=== PATIENT | male | born 1950 | race Two or more races ===

== ENCOUNTER 2023-10-14 12:37 | Emergency (ER) | payer MEDICARE ==
[~2023-10-14] VITALS: Ht 167.6 cm; Wt 42.3 kg
[2023-10-14 12:49] VITALS: BP 133/57; RESP 18; O2SAT 97
[2023-10-14 12:54] VITALS: PULSE 94
== END 2023-10-14 20:20 | disposition left against medical advice (07) ==
LOC: ER 12:37
DX: R42 Dizziness and giddiness (principal); R51.9 Headache, unspecified; M54.50 Low back pain, unspecified; M54.2 Cervicalgia; Z53.21 Procedure and treatment not carried out due to patient leaving prior to being seen by health care provider; W18.39XA Other fall on same level, initial encounter; Y93.89 Activity, other specified; Y92.89 Other specified places as the place of occurrence of the external cause; Y99.8 Other external cause status
CPT/HCPCS: 93005

== ENCOUNTER 2024-01-15 07:44 | Day surgery (SDC) | payer MEDICARE, MEDICAID ==
[~2024-01-15] VITALS: Ht 167.6 cm; Wt 40.8 kg
[2024-01-15] VITALS (13 sets, daily range): BP systolic 104–126; BP diastolic 52–69; PULSE 60–91; RESP 14–21; O2SAT 93–98
[~2024-01-15 07:44] MED LIST: ASPI-543 PO; CARV3.1240 PO; DOCU-94 PO; EMPA1TAB PO; HYDR2TAB58 PO; METO25TA5 PO; ROSU10TA16 PO; SACU1TAB PO
[2024-01-15] MEDS ORDERED: LIDOCAINE 2%HCL (LOCAL ANESTH.) INJ 20ML MDV ONE (09:13)
[2024-01-15] MEDS ORDERED: IODIXANOL 320MG/ML 100ML BTL IV ONE (09:13)
[2024-01-15] MEDS ORDERED: ANGIOMAX 250 MG VIAL IV ONE (09:16)
[2024-01-15] MEDS ORDERED: MIDAZOLAM HCL 2MG/2ML 2ml VIAL (1mg/ml) ONE (09:16)
[2024-01-15] MEDS ORDERED: fentaNYL CITRATE 100 MCG/2 ML VL ONE (09:16)
[2024-01-15] MEDS ORDERED: SODIUM CHL 0.9% 0 ML ONE (09:16)
== END 2024-01-15 14:42 | disposition home or self-care (01) ==
LOC: CATH 07:44
PROVIDERS: ATTEND Internal Medicine Cardiovascular Disease
DX: I25.5 Ischemic cardiomyopathy (principal); R94.39 Abnormal result of other cardiovascular function study; I25.10 Atherosclerotic heart disease of native coronary artery without angina pectoris; I11.0 Hypertensive heart disease with heart failure; I50.20 Unspecified systolic (congestive) heart failure; I44.7 Left bundle-branch block, unspecified; J44.9 Chronic obstructive pulmonary disease, unspecified; E78.5 Hyperlipidemia, unspecified; Z95.5 Presence of coronary angioplasty implant and graft
CPT/HCPCS: 93458; C1894; J1644; J2250; J3010; J7030; Q9967; 99152

== ENCOUNTER 2025-02-11 01:49 | Inpatient (IN) | payer MEDICARE, MEDICAID ==
[~2025-02-11] VITALS: Ht 167.6 cm; Wt 56.7 kg
[2025-02-11] VITALS (9 sets, daily range): BP systolic 99–146; BP diastolic 59–88; PULSE 78–97; RESP 14–20; TEMP 97.6–98.2; O2SAT 92–98
[2025-02-11] MEDS: SODIUM CHLORIDE 0.9% 1,000 ML IV ONE (02:00)
--- NOTE | 2025-02-11 02:04 | ED.PDOC ---
History of Present Illness HPI Comments 75 year old male with a Hx of HTN, High Lipids, and a Defibrillator presents to the ED for the c/c of Generalized Weakness w/ associated SOB, CP, diffuse ABD pain, and Dark Stool. Pt states that he symptoms have been onset for the past couple of weeks, with no alleviating factors at this time. No other associated symptoms, modifiers, recent injuries or sick contacts present at this time. Chief Complaint: General Weakness Time Seen by MD: 02:00 Primary Care Provider: TREY PMKaci Reviewed Notes: Nurses Notes, Medications, Allergies Allergies: Coded Allergies: NO KNOWN ALLERGIES (Unverified , 10/14/23) Home Meds Reported Medications Hydromorphone Hcl (Dilaudid) 2 Mg Tab, 2 TAB PO QID for back and hip pain. 01/13/24 Docusate Sodium (Colace) 100 Mg Cap, 100 MG PO DAILY for constipation, CAP 01/13/24 Aspirin (Aspir-Low) 81 Mg Tab, 81 MG PO DAILY for cardiac 01/13/24 Metoprolol Tartrate (Metoprolol Tartrate) 25 Mg Tab, 25 MG PO PRN for htn 01/13/24 Sacubitril-Valsartan (Entresto 24-26 mg) 1 Tab Tab, 1 TAB PO PRN for htn, TAB 01/13/24 Empagliflozin (Jardiance) 10 Mg Tab, 10 MG PO BID for cardiac, TAB 01/13/24 Carvedilol (Carvedilol) 3.125 Mg Tab, 3.125 MG PO DAILY for cardiac 01/13/24 Rosuvastatin Calcium (Crestor) 10 Mg Tab, 10 MG PO HS for cholesterol, TAB 01/13/24 Information Source: Patient Mode of Arrival: Wheelchair Severity: Moderate Timing: Weeks Duration: Intermittent Prehospital treatment: None Past Medical History PAST MEDICAL HISTORY: High Lipids, HTN Surgical History: Tonsillectomy Family History Family History: Reviewed,noncontributory to illness Social History Smoker: Quit Greater Than 1 Year Alcohol: Denies ETOH Use Drugs: Marijuana Lives In: Home, Assisted Care Constitutional: reports: weakness; denies: chills, diaphoresis, fatigue, fever, malaise, sweats, others EENTM: denies: blurred vision, double vision, ear bleeding, ear discharge, ear drainage, ear pain, ear ringing, eye pain, eye redness, hearing loss, mouth pain, mouth swelling, nasal discharge, nose bleeding, nose congestion, nose pain, photophobia, tearing, throat pain, throat swelling, voice changes, others Respiratory: reports: SOB at rest, shortness of breath; denies: cough, hemoptysis, orthopnea, SOB with excertion, stridor, wheezing, others Cardiovascular: reports: chest pain; denies: dizzy spells, diaphoresis, Dyspnea on exertion, edema, irregular heart beat, left arm pain, lightheadedness, palpitations, PND, syncope, others Gastrointestinal: reports: abdominal pain; denies: abdomen distended, blood streaked bowels, constipated, diarrhea, dysphagia, difficulty swallowing, hematemesis, melena, nausea, poor appetite, poor fluid intake, rectal bleeding, rectal pain, vomiting, others Genitourinary: denies: burning, dysuria, flank pain, frequency, hematuria, incontinence, penile discharge, penile sore, pain, testicle pain, testicle swelling, urgency, others Neurological: denies: dizziness, fainting, headache, left sided numbness, left sided weakness, numbness, paresthesia, pre-existing deficit, right sided numbness, right sided weakness, seizure, speech problems, tingling, tremors, weakness, others Musculoskeletal: denies: back pain, gout, joint pain, joint swelling, muscle pain, muscle stiffness, neck pain, others Integumetry: denies: bruises, change in color, change in hair/nails, dryness, laceration, lesions, lumps, rash, wounds, others Allergic/Immunocompromised: denies: Difficulty Healing, Frequent Infections, Hives, Itching, others Hematologic/Lymphatic: denies: anemia, blood clots, easy bleeding, easy bruising, swollen glands, others Endocrine: denies: excessive hunger, excessive sweating, excessive thirst, excessive urination, flushing, intolerance to cold, intolerance to heat, unexplained weight gain, unexplained weight loss, others Psychiatric: denies: anxiety, bipolar disorder, depression, hopeless, panic disorder, schizophrenia, sleepless, suicidal, others All Other Systems: Reviewed and Negative Physical Exam General Appearance: Moderate Distress, Normal, Thin, Other (Chronic ill appearing ) HEENT: Normal ENT Inspection, Pharynx Normal, TMs Normal Neck: Full Range of Motion, Non-Tender, Normal, Normal Inspection Respiratory: Chest Non-Tender, Lungs Clear, No Accessory Muscle Use, No Respiratory Distress, Normal Breath Sounds Cardiovascular: No Edema, No JVD, No Murmur, No Gallop, Normal Peripheral Pulses, Regular Rate/Rhythm Breast Exam: Deferred Gastrointestinal: No Organomegaly, Non Tender, No Pulsatile Mass, Normal Bowel Sounds, Soft Genitalia: Deferred Pelvic: Deferred Rectal: Deferred Extremities: No calf tenderness, Normal capillary refill, Normal inspection, Normal range of motion, Non-tender, No pedal edema Musculoskeletal : Apperance: Normal Neurologic: Alert, No Motor Deficits, Normal Affect, Normal Mood, No Sensory Deficits Cerebellar Function: Normal Reflexes: Normal Skin: Jaundice Lymphatic: No Adenopathy Was a procedure done? Was a procedure done?: No Differential Dx Considerations may include: Differential diagnosis includes but is not limited to: coronary ischemia, dehydration, sepsis, electrolyte abnormality, symptomatic anemia, hypovolemia and others X-Ray, Labs, Meds, VS Vital Signs Date Time Temp Pulse Resp B/P (MAP) Pulse Ox O2 Delivery O2 Flow Rate FiO2 02/11/25 05:03 84 163/97 (119) 02/11/25 02:49 98.1 86 20 138/80 (99) 95 98.1 02/11/25 02:49 83 20 95 Room Air* 0 21 02/11/25 01:52 97.5 95 12 134/78 (96) 98 97.5 Lab Test 02/11/25 04:30 02/11/25 03:17 02/11/25 02:26 Range/Units Lactic Acid Level 1.9 2.2 *H 0.4-2.0 mmol/L Troponin I High Sensitivity 4 6 </=54 ng/L White Blood Count 4.3 L 4.4-10.8 10^3/uL Red Blood Count 4.19 L 4.5-5.90 10^6/uL Hemoglobin 10.4 L 13.5-17.5 g/dL Hematocrit 33.5 L 41.0-53.0 % Mean Corpuscular Volume 80.0 80.0-100.0 fL Mean Corpuscular Hemoglobin 24.8 L 28.0-32.0 pg Mean Corpuscular Hemoglobin Concent 31.0 L 32.0-36.0 g/dL Red Cell Distribution Width 22.5 H 11.8-14.3 % Platelet Count 225 140-450 10^3/uL Mean Platelet Volume 7.6 6.9-10.8 fL Neutrophils (%) (Auto) 51.2 37.0-80.0 % Lymphocytes (%) (Auto) 34.7 10.0-50.0 % Monocytes (%) (Auto) 11.1 0.0-12.0 % Eosinophils (%) (Auto) 2.2 0.0-7.0 % Basophils (%) (Auto) 0.8 0.0-2.0 % Neutrophils # (Auto) 2.2 1.6-8.6 10 ^3/uL Lymphocytes # (Auto) 1.5 0.4-5.4 10 ^3/uL Monocytes # (Auto) 0.5 0-1.3 10 ^3/uL Eosinophils # (Auto) 0.1 0-0.8 10 ^3/uL Basophils # (Auto) 0 0-0.2 10 ^3/uL Nucleated Red Blood Cells 0.1 % Prothrombin Time 14.0 H 9.3-11.8 sec Prothrombin Time INR 1.36 H 0.9-1.15 Activated Partial Thromboplast Time 31.7 24.5-34.5 SEC Sodium Level 142 136-145 mmol/L Potassium Level 3.7 3.5-5.1 mmol/L Chloride Level 104 98-107 mmol/L Carbon Dioxide Level 28 20-31 mmol/L Anion Gap 10 5-15 Blood Urea Nitrogen 9 9-23 mg/dL Creatinine 0.86 0.700-1.30 mg/dL Glomerular Filtration Rate Calc 90 >90 mL/min BUN/Creatinine Ratio 10.5 10.0-20.0 Serum Glucose 99 74-106 mg/dL Calcium Level 9.9 8.7-10.4 mg/dL Magnesium Level 2.0 1.6-2.6 mg/dL Total Bilirubin 0.9 0.2-1.0 mg/dL Aspartate Amino Transferase (AST) 65 H 13-40 U/L Alanine Aminotransferase (ALT) 12 7-40 U/L Alkaline Phosphatase 61 46-116 U/L B-Type Natriuretic Peptide 395.65 0-100 pg/mL Total Protein 7.2 5.7-8.2 g/dL Albumin 3.8 3.2-4.8 g/dL Current Medications Medications (Trade) Dose Ordered Sig/Hayley Route Start Time Stop Time Status Last Admin Sodium Chloride 1,000 ml @ 1,000 mls/hr Q1H ONCE IV 02/11/25 02:00 02/11/25 02:59 DC 02/11/25 02:00 PATIENT: KASIA KO ACCT: [id number] UNIT: [id number] : 1950 LOC: ER ROOM / BED: / AGE / SEX: 75 / M ADM STATUS: REG ER SERVICE 0203 ORDERING PHYSICIAN: NANCY GILMORE MD PROCEDURE(s): ABPLIV - CT AB PEL WITH IV CON ONLY REASON: abd pain ORDER NUMBER(s): [id number], ACCESSION NUMBER(s): [id number] Exam: CT CT AB PEL WITH IV CON ONLY History: abd pain COMPARISON: CT CT AB PEL WITH IV CON ONLY on DOS: 01/12/25 Technique: Multidetector spiral CT of the abdomen and pelvis was performed from lung bases to pubic symphysis. Intravenous contrast was administered during this examination. Portal venous imaging was obtained. Axial, coronal and sagittal multiplanar reformats were performed by the technologist on a separate workstation. Radiation Dose : 1. Abdomen/Pelvis: CTDIvol 7.56 mGy, DLP 497.56 mGy*cm. CONTRAST: Type of contrast: Omnipaque 300 Contrast injected: 100 ml Findings: Lung Bases: Stable appearing slightly nodular bibasilar pulmonary infiltrate redemonstrated. New small bilateral pleural effusions, [id number]-right, with adjacent atelectasis. Normal heart size. No pleural or pericardial effusion. Cardiac pacing leads. Liver: Multiple stable appearing hepatic masses, the largest of which measures up to 8.0 cm in diameter within the left lobe. Gallbladder and Biliary Tree: Unremarkable Spleen: Unremarkable Pancreas: The pancreas is normal in appearance without focal lesions or abnormal enhancement. Adrenal Glands: Unremarkable Kidneys: No hydronephrosis. Bladder: Unremarkable Bowel: The stomach is grossly normal in appearance. Small bowel and colon are normal in caliber and distribution. Diverticulosis coli without CT evidence of acute diverticulitis. The appendix is not visualized; however, no secondary findings of acute appendicitis identified. Ascites: Slight interval increase in moderate to large abdominopelvic ascites. Lymphadenopathy: No mesenteric, retroperitoneal or periportal lymphadenopathy. Abdominal Wall and Mesentery: Unremarkable. Vasculature: The visualized abdominal aorta is normal in size and caliber. Atherosclerotic vascular calcifications. Abdominal and pelvic vessels demonstrate normal enhancement. Pelvic Organs: Unremarkable Musculoskeletal: No aggressive focal bony lesions, acute fractures or dislocation. Hardware status post L3-L5 posterior lumbar interbody fusion without evidence of complication. IMPRESSION: 1. New small bilateral pleural effusions, [id number]-mcdy-left, with adjacent atelectasis. Otherwise stable appearing nodular multifocal bibasilar pulmonary infiltrate. 2. Multiple stable appearing hepatic masses concerning for primary and/or metastatic disease. 3. Interval increase in now moderate to large abdominopelvic ascites. 4. Diverticulosis coli without CT evidence of acute diverticulitis. PATIENT: KASIA KO ACCT: [id number] UNIT: [id number] : 1950 LOC: ER ROOM / BED: / AGE / SEX: 75 / M ADM STATUS: REG ER SERVICE 0200 ORDERING PHYSICIAN: NACNY GILMORE MD PROCEDURE(s): CXRP - CHEST PORTABLE REASON: SOB ORDER NUMBER(s): [id number], ACCESSION NUMBER(s): [id number] CHEST RADIOGRAPH Indication: SOB Technique: Single frontal view of the chest was obtained COMPARISON: XY CHEST PORTABLE on DOS: 01/11/25 FINDINGS: Lines and Tubes: None. Left anterior chest wall cardiac pacing device. Lungs: Chronic appearing bilateral interstitial pulmonary markings. Small left pleural effusion. No pneumothorax. Cardiomediastinal contours: Unremarkable Bones: Unremarkable IMPRESSION: 1. Small left pleural effusion. 2. Chronic appearing bilateral interstitial pulmonary markings. Time of 1ST Reevaluation: 02:30 Reevaluation 1ST: Unchanged Patient Education/Counseling: Diagnosis, Treatment, Need For Follow Up Family Education/Counseling: No Family Present SEPSIS Sepsis Screen Physician Orders Chest Portable (02/11/25 02:00) Urinalysis (02/11/25 02:00) Heplock Iv (02/11/25 02:00) Hydraulic Controls Technician (02/11/25 02:00) Troponin-I Hs (02/11/25 05:00) Blood Culture (02/11/25 02:00) Ct Ab Pel With Iv Con Only (02/11/25 02:03) Vital Signs Date Time Temp Pulse Resp B/P (MAP) Pulse Ox O2 Delivery O2 Flow Rate FiO2 02/11/25 05:03 84 163/97 (119) 02/11/25 02:49 98.1 86 20 138/80 (99) 95 98.1 02/11/25 02:49 83 20 95 Room Air* 0 21 02/11/25 01:52 97.5 95 12 134/78 (96) 98 97.5 Laboratory Tests Test 02/11/25 02:26 02/11/25 04:30 Lactic Acid Level 2.2 mmol/L (0.4-2.0) *H 1.9 mmol/L (0.4-2.0) White Blood Count 4.3 10^3/uL (4.4-10.8) L Medications Medications Dose Ordered Sig/Hayley Route Start Time Stop Time Status Last Admin Dose Admin Sodium Chloride 1,000 ml @ 1,000 mls/hr Q1H ONCE IV 02/11/25 02:00 02/11/25 02:59 DC 02/11/25 02:00 Departure 1 Departure Time of Disposition: 05:16 Impression: Primary Impression: Generalized weakness Additional Impressions: 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 The patient appears ill and cachectic on examination. Diagnostic workup revealed metastatic cancer with primary hepatic malignancy and metastases to the lungs, bilateral pleural effusions, and possible bilateral pulmonary infiltrates. Review of Systems: Constitutional: Positive for generalized weakness and malaise. Respiratory: Positive for shortness of breath and dyspnea on exertion. Cardiovascular: Positive for chest pain. All other systems: Unable to assess from provided information. Medications: Home medications not specified in infection prevention coordinator. ED medications: IV fluids, IV Rocephin (ceftriaxone), azithromycin. Allergies: No known allergies documented in infection prevention coordinator. Past Medical History: Hypertension Hypercholesterolemia Anemia History of cardiac condition requiring defibrillator placement Physical Exam: General: Elderly male appearing ill and cachectic. Other physical exam findings not documented in infection prevention coordinator. Lab Results: CBC: - Hemoglobin: 10.4 g/dL (Low) - Hematocrit: 33.5% (Low) - WBC: 4.3 K/uL (Slightly low) Chemistry: - Lactic acid: 2.2 mmol/L (Elevated) - Troponin: 6 ng/L (Normal) - Remainder of chemistry panel unremarkable Imaging and Other Relevant Results: Chest X-ray: Bilateral pleural effusions CT Chest/Abdomen/Pelvis: Hepatic cancer with metastases to the lungs, pleural effusion, and possible bilateral infiltrates Medical Decision Making: Summary Statement: 75-year-old male with history of hypertension, hypercholesterolemia, and anemia presenting with 5-day history of weakness, shortness of breath, and chest pain found to have metastatic cancer with pneumonitis. Problem List: 1. Metastatic cancer (hepatic primary with lung metastases), 2. Pneumonitis/possible pneumonia, 3. Bilateral pleural effusions, 4. Anemia, 5. Hypertension, 6. Hypercholesterolemia Differential Diagnosis: For respiratory symptoms: 1. Pneumonia, 2. Malignant pleural effusion, 3. Pulmonary embolism, 4. Lymphangitic carcinomatosis, 5. Cardiac etiology (CHF, acute coronary syndrome) ED Course: Patient received IV fluid resuscitation. Empiric antibiotic therapy initiated with IV ceftriaxone and azithromycin for possible pneumonia. Diagnostic workup included CBC, chemistry panel, troponin, lactic acid, chest X- ray, and CT of chest/abdomen/pelvis, which revealed metastatic cancer. Decision made to admit patient for further management. Assessment and Plan: 1. Metastatic Cancer (Hepatic primary with lung metastases): - Newly diagnosed on CT imaging - Will require admission for further workup and staging - Oncology consultation to be obtained during admission - Consider tissue biopsy for definitive diagnosis and treatment planning 2. Pneumonitis/Possible Pneumonia: - Bilateral infiltrates noted on CT scan - Initiated empiric antibiotic coverage with IV ceftriaxone and azithromycin - Continue antibiotics during admission - Monitor respiratory status closely 3. Bilateral Pleural Effusions: - Likely malignant in etiology - Consider thoracentesis for diagnostic and therapeutic purposes during admission 4. Anemia: - Chronic, possibly related to malignancy - Hemoglobin 10.4, Hematocrit 33.5 - Monitor for clinical symptoms of anemia - Consider transfusion if symptomatic 5. Disposition: - Admit to Medicine service - Consult Oncology and Pulmonology - Continue IV antibiotics - Supportive care and symptom management Additional Notes: Patient requires admission for pneumonitis and metastatic cancer Billing Information: ICD-10: C78.00 - Secondary malignant neoplasm of lung ICD-10: C78.7 - Secondary malignant neoplasm of liver ICD-10: J18.9 - Pneumonia, unspecified organism ICD-10: R06.02 - Shortness of breath ICD-10: R53.1 - Weakness ICD-10: J91.8 - Pleural effusion in other conditions classified elsewhere Critical Care Note Critical Care Time?: Yes (35 min-critical care time only) Critical care comment: Total critical care time: Approximately 36 minutes Due to a high probability of clinically significant, life threatening deterioration, the patient required my highest level of preparedness to intervene emergently and I personally spent this critical care time directly and personally managing the patient. This critical care time included obtaining a history; examining the patient; pulse oximetry; ordering and review of studies; arranging urgent treatment with development of a management plan; evaluation of patient's response to treatment; frequent reassessment; and, discussions with other providers. This critical care time was performed to assess and manage the high probability of imminent, life-threatening deterioration that could result in multi-organ failure. It was exclusive of separately billable procedures and treating other patients. Stability Stability form required: No Heart Score Heart Score: Heart Score Response (Comments) Value History Slightly Suspicious 0 EKG Repolarization Disturb 1 Age >65 2 Risk Factors 1 or 2 risk factors 1 Troponin Normal limit 0 Total 4 I personally scribed for NANCY GILMORE MD ([email or web address]) on 02/11/25 at 02:04. Electronically submitted by Damian Lao ([email or web address]). I personally scribed for NANCY GILMORE MD (GUERITA) on 02/11/25 at 02:11. Electronically submitted by Damian Lao ([email or web address]). I personally scribed for NANCY GILMORE MD (GUERITA) on 02/11/25 at 05:12. Eunice ctronically submitted by Damian Lao ([email or web address]). NANCY GILMORE MD Feb 11, 2025 02:04
[2025-02-11 03:03] LABS: Hematocrit 33.5 % (41.0-53.0); Hemoglobin 10.4 g/dL (13.5-17.5); Mean Corpuscular Hemoglobin 24.8 pg (28.0-32.0); Mean Corpuscular Volume 80.0 fL (80.0-100.0); Nucleated Red Blood Cells % 0.1 %
[2025-02-11 03:18] LABS: INR 1.36 (0.9-1.15); Partial Thromboplastin Time 31.7 SEC (24.5-34.5); Prothrombin Time 14.0 sec (9.3-11.8)
[2025-02-11 03:23] LABS: Alanine Aminotransferase 12 U/L (7-40); Albumin 3.8 g/dL (3.2-4.8); Alkaline Phosphatase 61 U/L (46-116); Anion Gap 10 (5-15); BUN/Creatinine Ratio 10.5 (10.0-20.0); Bilirubin, Total 0.9 mg/dL (0.2-1.0); Blood Urea Nitrogen 9 mg/dL (9-23); Calcium 9.9 mg/dL (8.7-10.4); Carbon Dioxide 28 mmol/L (20-31); Chloride 104 mmol/L (98-107); Glucose 99 mg/dL (74-106); Magnesium 2.0 mg/dL (1.6-2.6); Potassium 3.7 mmol/L (3.5-5.1); Sodium 142 mmol/L (136-145); Total Protein 7.2 g/dL (5.7-8.2)
[2025-02-11 03:27] LABS: Lactic Acid w/Reflex 2.2 mmol/L (0.4-2.0)
[2025-02-11] MEDS: IOHEXOL 300 MG/ML 100ML BOTTLE IJ ONE (04:01)
--- NOTE | 2025-02-11 04:54 | DVH ---
Exam: CT CT AB PEL WITH IV CON ONLY History: abd pain COMPARISON: CT CT AB PEL WITH IV CON ONLY on DOS: 01/12/25 Technique: Multidetector spiral CT of the abdomen and pelvis was performed from lung bases to pubic s ymphysis. Intravenous contrast was administered during this examination. Portal venous imaging was o btained. Axial, coronal and sagittal multiplanar reformats were performed by the technologist on a [employer] workstation. Radiation Dose : 1. Abdomen/Pelvis: CTDIvol 7.56 mGy, DLP 497.56 mGy*cm. CONTRAST: Type of contrast: Omnipaque 300 Contrast injected: 100 ml Findings: Lung Bases: Stable appearing slightly nodular bibasilar pulmonary infiltrate redemonstrated. New smal l bilateral pleural effusions, [id number]-right, with adjacent atelectasis. Normal heart size . No pleural or pericardial effusion. Cardiac pacing leads. Liver: Multiple stable appearing hepatic masses, the largest of which measures up to 8.0 cm in diamet er within the left lobe. Gallbladder and Biliary Tree: Unremarkable Spleen: Unremarkable Pancreas: The pancreas is normal in appearance without focal lesions or abnormal enhancement. Adrenal Glands: Unremarkable Kidneys: No hydronephrosis. Bladder: Unremarkable Bowel: The stomach is grossly normal in appearance. Small bowel and colon are normal in caliber and d istribution. Diverticulosis coli without CT evidence of acute diverticulitis. The appendix is not vis ualized; however, no secondary findings of acute appendicitis identified. Ascites: Slight interval increase in moderate to large abdominopelvic ascites. Lymphadenopathy: No mesenteric, retroperitoneal or periportal lymphadenopathy. Abdominal Wall and Mesentery: Unremarkable. Vasculature: The visualized abdominal aorta is normal in size and caliber. Atherosclerotic vascular c alcifications. Abdominal and pelvic vessels demonstrate normal enhancement. Pelvic Organs: Unremarkable Musculoskeletal: No aggressive focal bony lesions, acute fractures or dislocation. Hardware status po st L3-L5 posterior lumbar interbody fusion without evidence of complication. IMPRESSION: 1. New small bilateral pleural effusions, oacoo-eelidqk-falv-left, with adjacent atelectasis. Otherwi se stable appearing nodular multifocal bibasilar pulmonary infiltrate. 2. Multiple stable appearing hepatic masses concerning for primary and/or metastatic disease. 3. Interval increase in now moderate to large abdominopelvic ascites. 4. Diverticulosis coli without CT evidence of acute diverticulitis. Radiation optimization: All CT scans at this facility use at least one of these dose optimization bong hniques: automated exposure control mA and/or kV adjustment per patient size (includes targeted exam s where dose is matched to clinical indication) or iterative reconstruction.
--- NOTE | 2025-02-11 04:56 | DVH ---
CHEST RADIOGRAPH Indication: SOB Technique: Single frontal view of the chest was obtained COMPARISON: XY CHEST PORTABLE on DOS: 01/11/25 FINDINGS: Lines and Tubes: None. Left anterior chest wall cardiac pacing device. Lungs: Chronic appearing bilateral interstitial pulmonary markings. Small left pleural effusion. No pneumothorax. Cardiomediastinal contours: Unremarkable Bones: Unremarkable IMPRESSION: 1. Small left pleural effusion. 2. Chronic appearing bilateral interstitial pulmonary markings.
[2025-02-11] MEDS: hydrALAZINE HCL 20 MG/ML VL IV STA (05:26)
[2025-02-11] MEDS: cefTRIAXone 1GM/50ML D5W 50 ML IV ONE (05:31)
[2025-02-11] MEDS: AZITHROMYCIN 500MG/ 250ML 250 ML IV ONE (05:42)
[2025-02-11] MEDS ORDERED: DOCUSATE SOD 100 MG CAP PO PRN (06:00)
[2025-02-11] MEDS ORDERED: ACETAMINOPHEN 325 MG TAB PO PRN (06:00)
[2025-02-11] MEDS ORDERED: MORPHINE SULFATE INJ 2 MG/ml SYRG IV PRN (06:00)
[2025-02-11] MEDS ORDERED: ONDANSETRON HCL 4 MG/2 ML VIAL IV PRN (06:00)
[2025-02-11] MEDS ORDERED: NITROGLYCERIN 0.4 MG SL TAB SL PRN (06:00)
[2025-02-11] MEDS: SODIUM CHLOR 0.9% PF (SALINE LOCK) 10ML VIAL/SYR IV SCH (06:23)
[2025-02-11] MEDS: FUROSEMIDE 20 MG/2 ML VIAL IV ONE (06:23)
--- NOTE | 2025-02-11 06:27 | DVHHP2 ---
History of Present Illness Reason for Visit: Generalized weakness History of Present Illness The patient is a 75-year-old male with past medical history of hyperlipidemia and hypertension who presented to [facility] ED for evaluation of generalized weakness. Patient's symptoms progressively get worse with diffuse abdominal pain, dark stools, associated with shortness of breaths, getting worse that prompted this visit. Patient was seen and evaluated in the ED, laboratory data shows WBC 4.3, hemoglobin 10.4, hematocrit 33.5, platelets 225, sodium 142, potassium 3.7, BUN 9, creatinine 0.86, glucose 99, calcium 9.9, BNP 395.65, AST 65, ALT 12, troponin four, lactic acid 2.2 trending down to 1.9, blood pressure 142/78, heart rate 88, temperature 98.1 F, O2 saturation 99% on room air. Abdomen/pelvis CT revealing new small bilateral pleural effusion, right greater than left, with adjacent atelectasis, stable appearing nodular multifocal bibasilar pulmonary infiltrates; multiple stable appearing hepatic masses concerning for primary and/or metastatic disease, moderate to large abdominopelvic ascites; diverticulitis without evidence of acute cholecystitis. Patient was started on IV antibiotic regimen azithromycin, please see medication orders section in the computer. On my assessment, patient denied chest pain, no headache, no dizziness, no shortness of breath, no abdominal pain at this moment, no nausea, no vomiting, no fever, no chills. Patient was admitted for further evaluation and medical management. Past Medical History High Lipids, HTN Past Surgical History Tonsillectomy Family History Reviewed, noncontributory to the management of this case. Past Social History [facility], quit greater than 1 year, denies alcohol, uses marijuana. Review of Systems Constitutional: Yes: Weakness; No: Fever, Chills, Sweats, Malaise, Other Eyes: No: Pain, Vision change, Conjunctivae inflammation, Eyelid inflammation, Other, Redness ENT: No: Ear pain, Ear discharge, Nose pain, Nose discharge, Nose congestion, Mouth pain, Mouth swelling, Throat pain, Throat swelling, Other Respiratory: Shortness of breath, Other (SOB at rest); No: Cough, Dry, SOB with excertion, Wheezing, Hemoptysis, Pleuritic Pain, Sputum, Wheezing Cardiovascular: Chest Pain; No: Palpitations, Orthopnea, Paroxysmal Noc. Dyspnea, Edema, Lt Headedness, Other Gastrointestinal: Abdominal Pain; No: Nausea, Vomiting, Diarrhea, Constipation, Melena, Hematochezia, Other Genitourinary: No Dysuria, No Frequency, No Incontinence, No Hematuria, No Retention, No Other Musculoskeletal: No: other, neck pain, shoulder pain, arm pain, back pain, hand pain, leg pain, foot pain Skin: No: Rash, Lesions, Jaundice, Bruising, Other Neurological: No: Weakness, Numbness, Incoordination, Change in speech, Confusion, Seizures, Other Allergies: Coded Allergies: NO KNOWN ALLERGIES (Unverified , 10/14/23) Exam Vital Signs Vital Signs Date Time Temp Pulse Resp B/P (MAP) Pulse Ox O2 Delivery O2 Flow Rate FiO2 02/11/25 05:42 98.1 88 20 142/78 (99) 99 98.1 02/11/25 02:49 Room Air* 0 21 General Appearance: Alert, Oriented X3, Cooperative, No acute distress HEENT: Atraumatic, PERRLA, EOMI, Mucous membr. moist/pink Respiratory: Normal air movement Cardiovascular: Regular rate, Normal S1, Normal S2, No murmurs Abdominal: Normal bowel sounds, Soft, No tenderness, No hepatospenomegaly, No masses Extremities: No clubbing, No cyanosis, No edema, Normal pulses, No tenderness/swelling Skin: No rashes, No breakdown, No significant lesion Neuro: Normal speech, Normal tone, Sensation intact, Cranial nerves 3-12 NL, Reflexes 2+, Other (Generalized weakness) Psych/Mental Status: Mental status NL, Mood NL Labs/Xrays Labs Test 02/11/25 05:36 02/11/25 04:30 02/11/25 02:26 Range/Units Lactic Acid Level 1.9 0.4-2.0 mmol/L White Blood Count 4.3 L 4.4-10.8 10^3/uL Red Blood Count 4.19 L 4.5-5.90 10^6/uL Hemoglobin 10.4 L 13.5-17.5 g/dL Hematocrit 33.5 L 41.0-53.0 % Mean Corpuscular Volume 80.0 80.0-100.0 fL Mean Corpuscular Hemoglobin 24.8 L 28.0-32.0 pg Mean Corpuscular Hemoglobin Concent 31.0 L 32.0-36.0 g/dL Red Cell Distribution Width 22.5 H 11.8-14.3 % Platelet Count 225 140-450 10^3/uL Mean Platelet Volume 7.6 6.9-10.8 fL Neutrophils (%) (Auto) 51.2 37.0-80.0 % Lymphocytes (%) (Auto) 34.7 10.0-50.0 % Monocytes (%) (Auto) 11.1 0.0-12.0 % Eosinophils (%) (Auto) 2.2 0.0-7.0 % Basophils (%) (Auto) 0.8 0.0-2.0 % Neutrophils # (Auto) 2.2 1.6-8.6 10 ^3/uL Lymphocytes # (Auto) 1.5 0.4-5.4 10 ^3/uL Monocytes # (Auto) 0.5 0-1.3 10 ^3/uL Eosinophils # (Auto) 0.1 0-0.8 10 ^3/uL Basophils # (Auto) 0 0-0.2 10 ^3/uL Nucleated Red Blood Cells 0.1 % Prothrombin Time 14.0 H 9.3-11.8 sec Prothrombin Time INR 1.36 H 0.9-1.15 Activated Partial Thromboplast Time 31.7 24.5-34.5 SEC Sodium Level 142 136-145 mmol/L Potassium Level 3.7 3.5-5.1 mmol/L Chloride Level 104 98-107 mmol/L Carbon Dioxide Level 28 20-31 mmol/L Anion Gap 10 5-15 Blood Urea Nitrogen 9 9-23 mg/dL Creatinine 0.86 0.700-1.30 mg/dL Glomerular Filtration Rate Calc 90 >90 mL/min BUN/Creatinine Ratio 10.5 10.0-20.0 Serum Glucose 99 74-106 mg/dL Calcium Level 9.9 8.7-10.4 mg/dL Magnesium Level 2.0 1.6-2.6 mg/dL Total Bilirubin 0.9 0.2-1.0 mg/dL Aspartate Amino Transferase (AST) 65 H 13-40 U/L Alanine Aminotransferase (ALT) 12 7-40 U/L Alkaline Phosphatase 61 46-116 U/L B-Type Natriuretic Peptide 395.65 0-100 pg/mL Total Protein 7.2 5.7-8.2 g/dL Albumin 3.8 3.2-4.8 g/dL PATIENT: ASHVIN KOCCT: [id number] UNIT: [id number] : 1950 LOC: ER ROOM / BED: / AGE / SEX: 75 / M ADM STATUS: REG ER SERVICE 0203 ORDERING PHYSICIAN: NANCY GILMORE MD PROCEDURE(s): ABPLIV - CT AB PEL WITH IV CON ONLY REASON: abd pain ORDER NUMBER(s): [id number], ACCESSION NUMBER(s): [id number] Exam: CT CT AB PEL WITH IV CON ONLY History: abd pain COMPARISON: CT CT AB PEL WITH IV CON ONLY on DOS: 01/12/25 Technique: Multidetector spiral CT of the abdomen and pelvis was performed from lung bases to pubic symphysis. Intravenous contrast was administered during this examination. Portal venous imaging was obtained. Axial, coronal and sagittal multiplanar reformats were performed by the technologist on a separate workstation. Radiation Dose: 1. Abdomen/Pelvis: CTDIvol 7.56 mGy, DLP 497.56 mGy*cm. CONTRAST: Type of contrast: Omnipaque 300 Contrast injected: 100 ml Findings: Lung Bases: Stable appearing slightly nodular bibasilar pulmonary infiltrate redemonstrated. New small bilateral pleural effusions, [id number]-[id number]-right, with adjacent atelectasis. Normal heart size. No pleural or pericardial effusion . Cardiac pacing leads. Liver: Multiple stable appearing hepatic masses, the largest of which measures up to 8.0 cm in diameter within the left lobe. Gallbladder and Biliary Tree: Unremarkable Spleen: Unremarkable Pancreas: The pancreas is normal in appearance without focal lesions or abnormal enhancement. Adrenal Glands: Unremarkable Kidneys: No hydronephrosis. Bladder: Unremarkable Bowel: The stomach is grossly normal in appearance. Small bowel and colon are normal in caliber and distribution. Diverticulosis coli without CT evidence of acute diverticulitis. The appendix is not visualized; however, no secondary findings of acute appendicitis identified. Ascites: Slight interval increase in moderate to large abdominopelvic ascites. Lymphadenopathy: No mesenteric, retroperitoneal or periportal lymphadenopathy. Abdominal Wall and Mesentery: Unremarkable. Vasculature: The visualized abdominal aorta is normal in size and caliber. Atherosclerotic vascular calcifications. Abdominal and pelvic vessels demonst rate normal enhancement. Pelvic Organs: Unremarkable Musculoskeletal: No aggressive focal bony lesions, acute fractures or dislo cation. Hardware status post L3-L5 posterior lumbar interbody fusion without evidence of complication. IMPRESSION: 1. New small bilateral pleural effusions, gaggz-jqtpluk-zpww-left, with adjacent atelectasis. Otherwise stable appearing nodular multifocal bibasilar pulmonary infiltrate. 2. Multiple stable appearing hepatic masses concerning for primary and/or metastatic disease. 3. Interval increase in now moderate to large abdominopelvic ascites. 4. Diverticulosis coli without CT evidence of acute diverticulitis. ORDERING PHYSICIAN: NANCY GILMORE MD PROCEDURE(s): CXRP - CHEST PORTABLE REASON: SOB ORDER NUMBER(s): [id number], ACCESSION NUMBER(s): [id number] CHEST RADIOGRAPH Indication: SOB Technique: Single frontal view of the chest was obtained COMPARISON: XY CHEST PORTABLE on DOS: 01/11/25 FINDINGS: Lines and Tubes: None. Left anterior chest wall cardiac pacing device. Lungs: Chronic appearing bilateral interstitial pulmonary markings. Small left pleural effusion. No pneumothorax. Cardiomediastinal contours: Unremarkable Bones: Unremarkable IMPRESSION: 1. Small left pleural effusion. 2. Chronic appearing bilateral interstitial pulmonary markings. SEPSIS Sepsis Screen Date sepsis recognized/suspect: Feb 11, 2025 Time Sepsis recognized/suspect: 251 Recent Procedure: No On Antibiotic Therapy: No Respiratory Rate >20: No Heart Rate >90: No Temp<36 C (96.8 F) or >38.3 C: No SBP <90 or MAP <65 mmHG: No New Acute Mental Status Change: No Is the patient on CPAP, BIPAP,: No Physician Orders Chest Portable (02/11/25 02:00) Urinalysis (02/11/25 02:00) Heplock Iv (02/11/25 02:00) Farm Machinery Mechanic (02/11/25 02:00) Troponin-I Hs (02/11/25 05:00) Blood Culture (02/11/25 02:00) Ct Ab Pel With Iv Con Only (02/11/25 02:03) Azithromycin 500mg/ 250ml (Zithromax 50 (02/11/25 05:30) Complete Blood Count (02/11/25 05:52) Comprehensive Metabolic Panel (02/11/25 05:52) Aspirin Tablet (02/11/25 10:00) Atorvastatin (Lipitor) (02/11/25 22:00) Carvedilol Tablet (Coreg Tablet) (02/11/25 10:00) Clonidine Hcl Tablet (Catapres Tablet) (02/11/25 06:00) Amlodipine Tablet (Norvasc Tablet) (02/11/25 10:00) Azithromycin 500mg/ 250ml (Zithromax 50 (02/11/25 10:00) Ceftriaxone Ivpb Rocephin (02/11/25 09:00) Admit (02/11/25 05:52) Allergies (02/11/25 05:52) Code Status (02/11/25 05:52) Sodium Chloride Lock (Saline Lock Ns) (02/11/25 06:00) Oxygen Per Hour (02/11/25 05:52) Hydrocodone-Acet 5/325mg Tab ([place] 5/32 (02/11/25 06:00) Ondansetron Hcl (Zofran) (02/11/25 06:00) Docusate Sodium Capsule (Colace Capsule) (02/11/25 06:00) Complete Blood Count (02/12/25 04:00) Comprehensive Metabolic Panel (02/12/25 04:00) Cardiac Diet-2gna,Lofat,Lochol (02/11/25 Breakfast) Echo 2d Mode Cardiac Dop (02/11/25 05:52) Condition: Serious (02/11/25 05:52) Acetaminophen Tablet (Tylenol Tablet) (02/11/25 06:00) Bedrest With Bathroom Privileg (02/11/25 05:52) Sequential Compression Device (02/11/25 ) Nitroglycerin Sublingual (Ntrostat Subli (02/11/25 06:00) Morphine Sulfate Injection (02/11/25 06:00) Stat Ekg For Chest Pain (02/11/25 05:52) Notify Of Changes From Base (02/11/25 05:52) Duck Bill Operator For 24 Hours (02/11/25 05:52) Emergency Dysrhythmia Protocol (02/11/25 05:52) Rhythm Strips Once Every Shift (02/11/25 05:52) Oxygen By Nasal Cannula (02/11/25 05:52) Furosemide Injection (Lasix Injection) (02/11/25 06:00) Furosemide Injection (Lasix Injection) (02/11/25 10:00) Vital Signs Date Time Temp Pulse Resp B/P (MAP) Pulse Ox O2 Delivery O2 Flow Rate FiO2 02/11/25 05:42 98.1 88 20 142/78 (99) 99 98.1 02/11/25 05:26 173/92 02/11/25 05:03 84 163/97 (119) 02/11/25 02:49 98.1 86 20 138/80 (99) 95 98.1 02/11/25 02:49 83 20 95 Room Air* 0 21 02/11/25 01:52 97.5 95 12 134/78 (96) 98 97.5 Laboratory Tests Test 02/11/25 02:26 02/11/25 04:30 Lactic Acid Level 2.2 mmol/L (0.4-2.0) *H 1.9 mmol/L (0.4-2.0) White Blood Count 4.3 10^3/uL (4.4-10.8) L Medications Medications Dose Ordered Sig/Hayley Route Start Time Stop Time Status Last Admin Dose Admin Azithromycin 250 ml @ 125 mls/hr ONCE ONCE IV 02/11/25 05:30 02/11/25 07:29 02/11/25 05:42 125 MLS/HR Ceftriaxone Sodium 50 ml @ 100 mls/hr ONCE ONCE IV 02/11/25 05:30 02/11/25 05:59 DC 02/11/25 05:31 100 MLS/HR Hydralazine HCl 5 mg ONCE STAT IV 02/11/25 05:21 02/11/25 05:22 DC 02/11/25 05:26 5 MG Sodium Chloride 1,000 ml @ 1,000 mls/hr Q1H ONCE IV 02/11/25 02:00 02/11/25 02:59 DC 02/11/25 02:00 1,000 MLS/HR Assessment/Plan Assessment/Plan Generalized weakness Pneumonitis Abdominal ascites Liver disease Pleural effusion Anemia, unspecified Elevated brain natriuretic peptide (BNP) level 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 Admit to telemetry unit 2. Breathing treatment 3. Pain control management 4. IV antibiotic management 5. Management of fluids and electrolytes 6. Consultation for hospitalist/pulmonology 7. Diagnostic test abdomen/pelvis CT 8. DVT prophylaxis-on SCDs 9. Repeat labs CBC, CMP in a.m. 10. Home medication reviewed and reconciled 11. Continue with current medical management 12. Treatment plan discussed with patient and RN. Patient verbalized understanding. Plan discussed with: Patient, Other (RN) My Orders Orders - MIRLANDE HINDS DNP Procedure Category Date Status Time Complete Blood Count LAB 02/11/25 Transmitted 05:52 Comprehensive LAB 02/11/25 Transmitted Metabolic Panel 05:52 Aspirin Tablet PHA 02/11/25 Transmitted 10:00 Atorvastatin (Lipitor) PHA 02/11/25 Transmitted 22:00 Carvedilol Tablet PHA 02/11/25 Transmitted (Coreg Tablet) 10:00 Clonidine Hcl Tablet PHA 02/11/25 Transmitted (Catapres Tablet) 06:00 Amlodipine Tablet PHA 02/11/25 Transmitted (Norvasc Tablet) 10:00 Azithromycin 500mg/ PHA 02/11/25 Transmitted 250ml (Zithromax 50 10:00 Ceftriaxone Ivpb PHA 02/11/25 Transmitted Rocephin 09:00 Admit ADMIT 02/11/25 Transmitted 05:52 Allergies WILFREDO 02/11/25 Transmitted 05:52 Code Status CODE 02/11/25 Transmitted 05:52 Sodium Chloride Lock PHA 02/11/25 Transmitted (Saline Lock Ns) 06:00 Oxygen Per Hour RT 02/11/25 Transmitted 05:52 Hydrocodone-Acet PHA 02/11/25 Transmitted 5/325mg Tab ([place] 06:00 Ondansetron Hcl PHA 02/11/25 Transmitted (Zofran) 06:00 Docusate Sodium PHA 02/11/25 Transmitted Capsule (Colace 06:00 Complete Blood Count LAB 02/12/25 Verified 04:00 Comprehensive LAB 02/12/25 Verified Metabolic Panel 04:00 Cardiac DIET 02/11/25 Transmitted Diet-2gna,Lofat,Lochol Breakfast Echo 2d Mode Cardiac US 02/11/25 Transmitted DOP 05:52 Condition: Serious WILFREDO 02/11/25 Transmitted 05:52 Acetaminophen Tablet PHA 02/11/25 Transmitted (Tylenol Tablet) 06:00 Bedrest With Bathroom [facility]ILFREDO 02/11/25 Transmitted Privileg 05:52 Sequential [facility] 02/11/25 Transmitted Compression Device Nitroglycerin PHA 02/11/25 Transmitted Sublingual (Ntrostat 06:00 Morphine Sulfate [facility] 02/11/25 Transmitted Injection 06:[address] Chest [facility] 02/11/25 Transmitted Pain 05:[address] [facility] 02/11/25 Transmitted From Base 05:[address] [facility] 02/11/25 Transmitted 24 Hours 05:[address] [facility] 02/11/25 Transmitted Protocol 05:[address] 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
[2025-02-11 07:05] LABS: Urine Protein, UAD TRACE (Negative)
--- NOTE | 2025-02-11 07:47 | DVH ---
US ABDOMEN LIMITED HISTORY: FLUID CHECK COMPARISON: None TECHNIQUE: Transverse and longitudinal sonographic images were obtained of all four quadrants of the abdomen and pelvis. FINDINGS: IMPRESSION: There is moderate ascites.
[2025-02-11] MEDS: FUROSEMIDE 20 MG/2 ML VIAL IV SCH (10:36)
[2025-02-11] MEDS: CARVEDILOL 3.125 MG TAB PO SCH (10:37)
--- NOTE | 2025-02-11 12:41 | DVHNC2 ---
Procedure - Paracentesis Procedure Note INDICATION: Ascites PROCEDURE [employer] SAFETY PROGRAM COORDINATOR: Isauro Connors MD. Ultrasound used to roberta location: Y/N CONSENT: Consent was obtained from _ prior to the procedure. Indications, risks, and benefits were explained at length. PROCEDURE SUMMARY: A time-out was performed. My hands were washed immediately prior to the procedure. I wore a surgical cap, mask with protective eyewear, sterile gown and sterile gloves throughout the procedure. The area was cleansed and draped in usual sterile fashion using chlorhexidine scrub. Anesthesia was achieved with 1% lidocaine. The _ of the abdomen was prepped and draped in a sterile fashion using chlorhexidine scrub. 1% lidocaine was used to numb the skin, soft tissue and peritoneum. The paracentesis catheter was inserted and advanced with negative pressure until yellow colored fluid was aspirated. Approximately 60 mL of ascitic fluid was collected and sent for laboratory analysis. The catheter was then connected to the vaccutainer and 2100 mL of additional yellow ascitic fluid were drained. The catheter was removed and no leaking was noted. A band- aid was placed over the puncture wound. The patient tolerated the procedure well without any immediate complications. Estimated blood loss was less than 5 mL. CPT 40513 ISAURO CONNORS MD Feb 11, 2025 12:41
[2025-02-11] MEDS: HYDROcodone-ACET 5/325MG TAB PO PRN (14:44)
--- NOTE | 2025-02-11 19:10 | DVHPN2 ---
Subjective Feels better but still having back pain and he is requesting Dilaudid Reviewed: Care Plan, H&P, Labs, Medications, Previous Orders, Radiology Changes from previous H/P or p: No Changes Respiratory: Shortness of breath Objective Vitals Vital Signs Date Time Temp Pulse Resp B/P (MAP) Pulse Ox O2 Delivery O2 Flow Rate FiO2 02/11/25 16:23 97.6 90 18 125/75 (92) 92 97.6 02/11/25 09:40 Nasal Cannula* 2 28 General Appearance: Alert, Oriented X3, Cooperative HEENT: Atraumatic Lungs: Other (Crackles bilateral lungs) Cardiovascular: Regular rate Abdomen: Normal bowel sounds, Soft Extremities: Other (3+ bilateral lower extremity edema/pitting) Medications Current Medications Medications Dose Ordered Sig/Hayley Route Start Time Stop Time Status Last Admin Dose Admin Aspirin 81 mg DAILY PO 02/11/25 10:00 Atorvastatin Calcium 10 mg HS PO 02/11/25 22:00 Carvedilol 3.125 mg Q12HR PO 02/11/25 10:00 02/11/25 10:37 3.125 MG Clonidine HCl 0.1 mg Q4HP PRN PO 02/11/25 06:00 Amlodipine Besylate 5 mg DAILY PO 02/11/25 10:00 02/11/25 10:36 5 MG Azithromycin 250 ml @ 125 mls/hr DAILY IV 02/12/25 10:00 Ceftriaxone Sodium 50 ml @ 100 mls/hr DAILY@0530 IV 02/12/25 05:30 Sodium Chloride 10 ml Q8HR IV 02/11/25 06:00 02/11/25 14:00 10 ML Acetaminophen/ Hydrocodone Bitart 1 tab Q4HP PRN PO 02/11/25 06:00 02/11/25 14:44 1 TAB Ondansetron HCl 4 mg Q4HP PRN IV 02/11/25 06:00 Docusate Sodium 100 mg BIDPRN PRN PO 02/11/25 06:00 Acetaminophen 650 mg Q6HP PRN PO 02/11/25 06:00 Nitroglycerin 0.4 mg Q5MINP PRN SL 02/11/25 06:00 Morphine Sulfate 2 mg Q30M PRN IV 02/11/25 06:00 Furosemide 20 mg DAILY IV 02/11/25 10:00 02/11/25 10:36 20 MG Laboratory Results Laboratory Tests 02/11/25 02:26 Chemistry Test 02/11/25 02:26 Albumin 3.8 g/dL (3.2-4.8) Calcium Level 9.9 mg/dL (8.7-10.4) Magnesium Level 2.0 mg/dL (1.6-2.6) Total Protein 7.2 g/dL (5.7-8.2) Coagulation Test 02/11/25 02:26 Prothrombin Time 14.0 sec (9.3-11.8) H Prothrombin Time INR 1.36 (0.9-1.15) H Activated Partial Thromboplast Time 31.7 SEC (24.5-34.5) Cardiac Markers Test 02/11/25 02:26 B-Type Natriuretic Peptide 395.65 pg/mL (0-100) LFT Test 02/11/25 02:26 Alanine Aminotransferase (ALT) 12 U/L (7-40) Alkaline Phosphatase 61 U/L (46-116) Aspartate Amino Transferase (AST) 65 U/L (13-40) H Total Bilirubin 0.9 mg/dL (0.2-1.0) Urinalysis Test 02/11/25 06:00 Urine Color Yellow (Yellow) Urine Clarity Clear (Clear) Urine pH 6.0 (5.0-9.0) Urine Specific St[place] > 1.050 (1.001-1.035) Urine Protein Trace (Negative) H Urine Ketones Negative (Negative) Urine Blood Negative /uL (Negative) Urine Nitrite Negative (Negative) Urine Bilirubin Negative (Negative) Urine Urobilinogen Normal mg/dL (Negative) Urine Leukocyte Esterase Negative /uL (Negative) Urine RBC <1 /hpf (0 - 3) Urine Microscopic WBC 1 /HPF (0-3) Urine Squamous Epithelial Cells Few /hpf (<5) Urine Bacteria Few /hpf (None Seen) H Urine Mucus Few (None Seen) Urine Glucose Normal mg/dL (Normal) Assessment/Plan Assessment/Plan Liver lesions of unclear etiology/possible metastasis versus primary Bilateral pleural effusion Ascites Anasarca Anemia Diverticulosis Questionable pneumonitis Hypertension Dyslipidemia History of HI and heart failure Chronic pain syndrome/patient takes heavy narcotics are home Plan: We will obtain abdominal MRI attention to liver lesions/possible metastasis. Pain control. Further plan per orders Plan discussed with: Patient Date of Service: Feb 11, 2025 Billing Provider: TERENCE AVILES MD Common Visit Codes: [id number] INP/OBS CARE(HIGH) TERENCE AVILES MD Feb 11, 2025 19:10
[2025-02-11] MEDS: ATORVASTATIN 20 MG TAB PO SCH (21:45)
--- NOTE | 2025-02-11 23:25 | DVHINCON2 ---
Date of service: Feb 11, 2025 Referring Physician [employer] MEMBER [facility] Reason for Consultation Acute hypoxic respiratory failure, aspiration pneumonia, metastatic lung cancer, pleural effusions and ascites. History of Present Illness A 75-year-old man with past medical history of hyperlipidemia and hypertension who presents to ED today for evaluation of generalized weakness. Patient's symptoms progressively got worse with diffuse abdominal pain, dark stools, associated with shortness of breath, getting worse that prompted this visit. ED workup showed WBC 4.3, hemoglobin 10.4, hematocrit 33.5, platelets 225, sodium 142, potassium 3.7, BUN 9, creatinine 0.86, glucose 99, calcium 9.9, BNP 395.65, AST 65, ALT 12, troponin four, lactic acid 2.2 trending down to 1.9. Vitals in ED were BP 142/78, heart rate 88, temperature 98.1 F, O2 saturation 99% on room air. Abdomen/pelvis CT revealing new small bilateral pleural effusions, right greater than left, with adjacent atelectasis, stable appearing nodular multifocal bibasilar pulmonary infiltrates; multiple stable appearing hepatic masses concerning for primary and/or metastatic disease, moderate to large abdominopelvic ascites; diverticulitis without evidence of acute cholecystitis. Patient was started on IV antibiotic regimen azithromycin and admitted for further care. Pulmonary consultation is requested for evaluation and management of acute hypoxic respiratory failure, aspiration pneumonia, metastatic lung cancer, pleural effusions and ascites. Review of Systems: 14-point review of systems negative unless otherwise noted above. Past Medical History High Lipids, HTN Past Surgical History Tonsillectomy Medications: Reviewed. Allergies: No known drug allergies. Family History: Hypertension and heart disease. Social History Patient lives at assisted living. Quit smoking greater than 1 year ago. Denies alcohol. Uses marijuana. Family History: Cardiovascular disease G8 MOTHER G8 FATHER Hypertension G8 MOTHER G8 FATHER Allergies: Coded Allergies: NO KNOWN ALLERGIES (Unverified , 10/14/23) Home Meds Reported Medications Hydromorphone Hcl (Dilaudid) 2 Mg Tab, 2 TAB PO QID for back and hip pain. 01/13/24 Docusate Sodium (Colace) 100 Mg Cap, 100 MG PO DAILY for constipation, CAP 01/13/24 Aspirin (Aspir-Low) 81 Mg Tab, 81 MG PO DAILY for cardiac 01/13/24 Metoprolol Tartrate (Metoprolol Tartrate) 25 Mg Tab, 25 MG PO PRN for htn 01/13/24 Sacubitril-Valsartan (Entresto 24-26 mg) 1 Tab Tab, 1 TAB PO PRN for htn, TAB 01/13/24 Empagliflozin (Jardiance) 10 Mg Tab, 10 MG PO BID for cardiac, TAB 01/13/24 Carvedilol (Carvedilol) 3.125 Mg Tab, 3.125 MG PO DAILY for cardiac 01/13/24 Rosuvastatin Calcium (Crestor) 10 Mg Tab, 10 MG PO HS for cholesterol, TAB 01/13/24 Current Medications Current Medications Medications (Trade) Dose Ordered Sig/Hayley Route PRN Reason Start Time Stop Time Status Last Admin Hydralazine HCl (Apresoline Injection) 5 mg ONCE STAT IV 02/11/25 05:21 02/11/25 05:22 DC 02/11/25 05:26 Aspirin 81 mg DAILY PO 02/11/25 10:00 Atorvastatin Calcium (Lipitor) 10 mg HS PO 02/11/25 22:00 02/11/25 21:45 Carvedilol (Coreg Tablet) 3.125 mg Q12HR PO 02/11/25 10:00 02/11/25 21:45 Clonidine HCl (Catapres Tablet) 0.1 mg Q4HP PRN PO SBP>150 02/11/25 06:00 Amlodipine Besylate (Norvasc Tablet) 5 mg DAILY PO 02/11/25 10:00 02/11/25 10:36 Azithromycin 250 ml @ 125 mls/hr DAILY IV 02/12/25 10:00 Ceftriaxone Sodium 50 ml @ 100 mls/hr DAILY@0530 IV 02/12/25 05:30 Sodium Chloride (Saline Lock Ns) 10 ml Q8HR IV 02/11/25 06:00 02/11/25 21:44 Acetaminophen/ Hydrocodone Bitart ([place] 5/325MG Tab) 1 tab Q4HP PRN PO MODERATE PAIN (4-6 PAIN SCALE) 02/11/25 06:00 02/11/25 19:36 DC 02/11/25 14:44 Ondansetron HCl (Zofran) 4 mg Q4HP PRN IV NAUSEA / VOMITING 02/11/25 06:00 Docusate Sodium (Colace Capsule) 100 mg BIDPRN PRN PO FOR CONSTIPATION 02/11/25 06:00 Acetaminophen (Tylenol Tablet) 650 mg Q6HP PRN PO PAIN SCALE 1-3 OR TEMP>100.4 02/11/25 06:00 Nitroglycerin (Ntrostat Sublingual) 0.4 mg Q5MINP PRN SL FOR CHEST PAIN 02/11/25 06:00 Morphine Sulfate 2 mg Q30M PRN IV FOR CHEST PAIN 02/11/25 06:00 Furosemide (Lasix Injection) 20 mg DAILY IV 02/11/25 10:00 02/11/25 10:36 Acetaminophen/ Hydrocodone Bitart ([place] 10/325MG Tab) 1 tab Q4HP PRN PO MODERATE PAIN (4-6 PAIN SCALE) 02/11/25 19:15 Hydromorphone HCl (Dilaudid Tablet) 2 mg Q4HP PRN PO SEVERE PAIN (7-10 PAIN SCALE) 02/11/25 19:15 02/11/25 20:43 Vital Signs Vital Signs Date Time Temp Pulse Resp B/P (MAP) Pulse Ox O2 Delivery O2 Flow Rate FiO2 02/11/25 21:45 96 146/88 02/11/25 20:56 98.0 18 94 98.0 02/11/25 09:40 Nasal Cannula* 2 28 Physical Exam Gen.: Patient lying in bed in no apparent distress. On supplemental oxygen. Head: Normocephalic, atraumatic. Eyes: EOMI/PERRLA. Ears: Normal hearing. Normal anatomy. Neck/trachea: Trachea midline, supple. Nose: Normal external anatomy. Mouth: Moist mucous membranes. Chest: Decreased air entry bilaterally. No wheezing or rhonchi. Cardiovascular: Positive S1, positive S2. Regular rate and rhythm. Abdomen: Positive bowel sounds in all 4 quadrants. Soft, non-tender, non- distended. : Deferred. Rectal: Deferred. Skin: Warm, dry. Intact. Extremities: 2+ radial pulses bilaterally. No lower extremity edema. Neuro: Awake, alert, oriented x3. No gross motor or sensory deficits. Cranial nerves II through XII intact. Gait not assessed. Labs/Diagnostic Data Labs Test 02/11/25 13:00 02/11/25 06:00 02/11/25 05:36 02/11/25 04:30 Range/Units Body Fluid Source Peritoneal fluid Body Fluid pH 8.0 Body Fluid WBC (Manual) 19 0-200 CUMM Body Fluid RBC (Manual) 632 0-2000 CUMM Body Fluid Mononuclear Cells 93 % Body Fluid Polymorphonuclear Cells 7 0-25 % Urine Color Yellow Yellow Urine Clarity Clear Clear Urine pH 6.0 5.0-9.0 Urine Specific [place] > 1.050 H 1.001-1.035 Urine Protein Trace H Negative Urine Ketones Negative Negative Urine Blood Negative Negative /uL Urine Nitrite Negative Negative Urine Bilirubin Negative Negative Urine Urobilinogen Normal Negative mg/dL Urine Leukocyte Esterase Negative Negative /uL Urine RBC <1 0 - 3 /hpf Urine Microscopic WBC 1 0-3 /HPF Urine Squamous Epithelial Cells Few <5 /hpf Urine Bacteria Few H None Seen /hpf Urine Mucus Few None Seen Urine Glucose Normal Normal mg/dL Troponin I High Sensitivity 6 </=54 ng/L Lactic Acid Level 1.9 0.4-2.0 mmol/L Test 02/11/25 02:26 Range/Units White Blood Count 4.3 L 4.4-10.8 10^3/uL Red Blood Count 4.19 L 4.5-5.90 10^6/uL Hemoglobin 10.4 L 13.5-17.5 g/dL Hematocrit 33.5 L 41.0-53.0 % Mean Corpuscular Volume 80.0 80.0-100.0 fL Mean Corpuscular Hemoglobin 24.8 L 28.0-32.0 pg Mean Corpuscular Hemoglobin Concent 31.0 L 32.0-36.0 g/dL Red Cell Distribution Width 22.5 H 11.8-14.3 % Platelet Count 225 140-450 10^3/uL Mean Platelet Volume 7.6 6.9-10.8 fL Neutrophils (%) (Auto) 51.2 37.0-80.0 % Lymphocytes (%) (Auto) 34.7 10.0-50.0 % Monocytes (%) (Auto) 11.1 0.0-12.0 % Eosinophils (%) (Auto) 2.2 0.0-7.0 % Basophils (%) (Auto) 0.8 0.0-2.0 % Neutrophils # (Auto) 2.2 1.6-8.6 10 ^3/uL Lymphocytes # (Auto) 1.5 0.4-5.4 10 ^3/uL Monocytes # (Auto) 0.5 0-1.3 10 ^3/uL Eosinophils # (Auto) 0.1 0-0.8 10 ^3/uL Basophils # (Auto) 0 0-0.2 10 ^3/uL Nucleated Red Blood Cells 0.1 % Prothrombin Time 14.0 H 9.3-11.8 sec Prothrombin Time INR 1.36 H 0.9-1.15 Activated Partial Thromboplast Time 31.7 24.5-34.5 SEC Sodium Level 142 136-145 mmol/L Potassium Level 3.7 3.5-5.1 mmol/L Chloride Level 104 98-107 mmol/L Carbon Dioxide Level 28 20-31 mmol/L Anion Gap 10 5-15 Blood Urea Nitrogen 9 9-23 mg/dL Creatinine 0.86 0.700-1.30 mg/dL Glomerular Filtration Rate Calc 90 >90 mL/min BUN/Creatinine Ratio 10.5 10.0-20.0 Serum Glucose 99 74-106 mg/dL Calcium Level 9.9 8.7-10.4 mg/dL Magnesium Level 2.0 1.6-2.6 mg/dL Total Bilirubin 0.9 0.2-1.0 mg/dL Aspartate Amino Transferase (AST) 65 H 13-40 U/L Alanine Aminotransferase (ALT) 12 7-40 U/L Alkaline Phosphatase 61 46-116 U/L B-Type Natriuretic Peptide 395.65 0-100 pg/mL Total Protein 7.2 5.7-8.2 g/dL Albumin 3.8 3.2-4.8 g/dL Assessment Impression: Acute hypoxic respiratory failure Dependence on supplemental oxygen Aspiration pneumonia Pleural effusions Atelectasis Ascites Metastatic adenocarcinoma of lung Hx of nicotine dependence Marijuana use. Plan: Supplemental oxygen, on 2 LPM NC Titrate to keep O2 sats above 92%. Taper O2 as tolerated. CT abdomen/pelvis revealed: New small bilateral pleural effusions, [id number], with adjacent atelectasis. Otherwise stable appearing nodular multifocal bibasilar pulmonary infiltrate. Multiple stable appearing hepatic masses concerning for primary and/or metastatic disease Interval increase in now moderate to large abdominopelvic ascites. Patient underwent paracentesis today with removal of 2100 mL - see separate procedure note for details. Unable to drain completely due to omentum stopping drainage. Will reassess in am to evaluate if another pocket amenable for paracentesis and do limited chest US for left pleural effusion. Head of bed elevation Aspiration precautions Continue antibiotics Incentive spirometry Blood pressure control Pain control Avoid oversedation Diurese to euvolemia with Lasix Monitor renal function. Monitor electrolytes. Supplement as necessary. Monitor ins and outs. Counseled against marijuana use. DVT prophylaxis. Prognosis: Poor given patient's multiple co-morbidities. Rest of plan per hospitalist and other consultants. Thank you, AMITA Morse, for allowing me to participate in this patient's care. Further recommendations will depend on the patient's clinical course. Please do not hesitate to contact me if you have any questions or concerns. This medical document was created using an electronic medical record system with [employer] computerized dictation system. Although these documentations are being carefully reviewed, there may still be some phonetic and typographical changes. The errors are purely typographical, due to imperfection on the software program, and do not reflect any compromise in the patient's medical care. Plan discussed with: Patient, Other (JOVAN Jordan/AMITA Morse/) ISAURO ETIENNE MD Feb 11, 2025 23:25
[2025-02-12] VITALS (7 sets, daily range): BP systolic 104–158; BP diastolic 61–85; PULSE 81–93; RESP 17–18; TEMP 97.6–98.1; O2SAT 95–97
[2025-02-12] MEDS: cefTRIAXone 1GM/50ML D5W 50 ML IV SCH (05:41)
[2025-02-12 06:31] LABS: Hematocrit 31.0 % (41.0-53.0); Hemoglobin 9.7 g/dL (13.5-17.5); Mean Corpuscular Hemoglobin 25.4 pg (28.0-32.0); Mean Corpuscular Volume 80.7 fL (80.0-100.0); Nucleated Red Blood Cells % 0.2 %
[2025-02-12 06:48] LABS: Alanine Aminotransferase 11 U/L (7-40); Albumin 3.2 g/dL (3.2-4.8); Alkaline Phosphatase 53 U/L (46-116); Anion Gap 9 (5-15); BUN/Creatinine Ratio 14.1 (10.0-20.0); Bilirubin, Total 0.7 mg/dL (0.2-1.0); Blood Urea Nitrogen 11 mg/dL (9-23); Calcium 9.4 mg/dL (8.7-10.4); Carbon Dioxide 28 mmol/L (20-31); Chloride 105 mmol/L (98-107); Glucose 101 mg/dL (74-106); Potassium 4.0 mmol/L (3.5-5.1); Sodium 142 mmol/L (136-145); Total Protein 6.2 g/dL (5.7-8.2)
[2025-02-12] MEDS: AZITHROMYCIN 500MG/ 250ML 250 ML IV SCH (10:00)
--- NOTE | 2025-02-12 11:30 | DVHNC2 ---
Procedure - Left Thoracentesis 2000mL Yellow fluid f/u cxr. ISAURO ETIENNE MD Feb 12, 2025 11:30
[2025-02-12] MEDS: ALBUMIN 25% 100 ML IV ONE (11:45)
--- NOTE | 2025-02-12 13:19 | DVH ---
XY CHEST XRAY 1 VIEW, HISTORY: s/p left thoracentesis r/o PTX COMPARISON: XY CHEST PORTABLE on DOS: 02/11/25, XY CHEST PORTABLE on DOS: 01/11/25 XY CHEST PORTABLE on DOS: 02/11/25, XY CHEST PORTABLE on DOS: 01/11/25 TECHNICAL DATA: 1 view of the chest was obtained. FINDINGS: Lines and tubes: A cardiac pacer is seen. Cardiomediastinal silhouette: normal Pulmonary vasculature: Prominent Lung expansion: normal Lung airspace: Multifocal patchy airspace opacity Lung interstitium: normal Pleura: Small left effusion. Pneumothorax: no Bones: Unremarkable Other: no IMPRESSION: Similar lung aeration bilaterally. No pneumothorax is seen.
--- NOTE | 2025-02-12 16:35 | DVHSR ---
APPROVED REPORT EXAM: Two-dimensional and M-mode echocardiogram with Doppler and color Doppler. Blood Pressure: 127/78 mmHg INDICATION elevated bnp Surgery/Intervention ICD RISK FACTORS Height: , Weight: DIMENSIONS LVDd4.1 (3.8-5.7cm)LA (2D)2.3 (1.9-4.0cm)Aortic Root3.4 (2.0-3.7cm) LVDs3.2 (2.5-4.0cm)LA (MM) (1.9-4.0cm)Aortic Cusp Exc1.6 (1.5-2.0cm) EF (%) 53.0 (55-70%)Rt. Atrium3.4 (1.9-4.0cm)Asc. Aorta2.6 cm IVSd0.6 (0.7-1.1cm)RV (D)2.3 (1.8-2.4cm) PWd0.9 (0.7-1.1cm) Mitral Valve MitralMitral Stenosis E wave1.16m/sMV Mean GR.3mmHg A wavem/sMV Peak GR.118mmHg E/A ratio0.02D MVAcm2 DECEL [id number] 1/2 Tim[place] Aortic Valve Aortic ValveAortic Stenosis V10.64m/[place] Mean GR.2mmHg V21.04m/[place] Peak GR.4mmHg LVOT Diameter2.2 (1.8-2.4cm)Doppler AVA2.34cm2 AI P 1/2 [id number] Pulmonic Valve V20.80m/s Tricuspid Valve TR Velocity2.71m/s [id number] Conclusion Technically good study. Sinus rhythm. Aortic root enlargement. Concentric LVH. Valves are normal. EF of 55% with normal RV function. Moderate tricuspid insufficiency. Mild aortic insufficiency. Moderate mitral insufficiency. Mild p ulmonic insufficiency. Pacing lead noted in RV. Large pleural effusion. No intracardiac masses thrombi or vegetations.
--- NOTE | 2025-02-12 18:03 | DVHPN2 ---
Subjective Feels better with Dilaudid. Patient does not have PCP. He said he might come to see me as PCP after discharge Reviewed: Care Plan, H&P, Labs, Medications, Previous Orders, Radiology Changes from previous H/P or p: No Changes Respiratory: Shortness of breath Objective Vitals Vital Signs Date Time Temp Pulse Resp B/P (MAP) Pulse Ox O2 Delivery O2 Flow Rate FiO2 02/12/25 16:47 98.1 81 18 104/61 (75) 95 98.1 02/12/25 08:00 Nasal Cannula* 3 32 Intake/Output Intake and Output 02/12/25 07:00 Intake Total 450 ml Output Total 2900 ml Balance -2450 ml Intake Oral 400 ml IV Total 50 ml Output Urine Total 2900 ml General Appearance: Alert, Oriented X3, Cooperative HEENT: Atraumatic Lungs: Other (Crackles bilateral lungs) Cardiovascular: Regular rate Abdomen: Normal bowel sounds, Soft Extremities: Other (3+ bilateral lower extremity edema/pitting) Medications Current Medications Medications Dose Ordered Sig/Hayley Route Start Time Stop Time Status Last Admin Dose Admin Aspirin 81 mg DAILY PO 02/11/25 10:00 02/12/25 10:00 81 MG Atorvastatin Calcium 10 mg HS PO 02/11/25 22:00 02/11/25 21:45 10 MG Carvedilol 3.125 mg Q12HR PO 02/11/25 10:00 02/12/25 10:00 3.125 MG Clonidine HCl 0.1 mg Q4HP PRN PO 02/11/25 06:00 Amlodipine Besylate 5 mg DAILY PO 02/11/25 10:00 02/12/25 10:00 5 MG Azithromycin 250 ml @ 125 mls/hr DAILY IV 02/12/25 10:00 02/12/25 10:00 125 MLS/HR Ceftriaxone Sodium 50 ml @ 100 mls/hr DAILY@0530 IV 02/12/25 05:30 02/12/25 05:41 100 MLS/HR Sodium Chloride 10 ml Q8HR IV 02/11/25 06:00 02/12/25 14:00 10 ML Ondansetron HCl 4 mg Q4HP PRN IV 02/11/25 06:00 Docusate Sodium 100 mg BIDPRN PRN PO 02/11/25 06:00 Acetaminophen 650 mg Q6HP PRN PO 02/11/25 06:00 Nitroglycerin 0.4 mg Q5MINP PRN SL 02/11/25 06:00 Morphine Sulfate 2 mg Q30M PRN IV 02/11/25 06:00 Furosemide 20 mg DAILY IV 02/11/25 10:00 02/12/25 10:00 20 MG Acetaminophen/ Hydrocodone Bitart 1 tab Q4HP PRN PO 02/11/25 19:15 Hydromorphone HCl 2 mg Q4HP PRN PO 02/11/25 19:15 02/12/25 15:25 2 MG Laboratory Results Laboratory Tests 02/12/25 04:36 Chemistry Test 02/12/25 04:36 Albumin 3.2 g/dL (3.2-4.8) Calcium Level 9.4 mg/dL (8.7-10.4) Total Protein 6.2 g/dL (5.7-8.2) LFT Test 02/12/25 04:36 Alanine Aminotransferase (ALT) 11 U/L (7-40) Alkaline Phosphatase 53 U/L (46-116) Aspartate Amino Transferase (AST) 52 U/L (13-40) H Total Bilirubin 0.7 mg/dL (0.2-1.0) Urinalysis Test 02/11/25 06:00 Urine Color Yellow (Yellow) Urine Clarity Clear (Clear) Urine pH 6.0 (5.0-9.0) Urine Specific [place] > 1.050 (1.001-1.035) Urine Protein Trace (Negative) H Urine Ketones Negative (Negative) Urine Blood Negative /uL (Negative) Urine Nitrite Negative (Negative) Urine Bilirubin Negative (Negative) Urine Urobilinogen Normal mg/dL (Negative) Urine Leukocyte Esterase Negative /uL (Negative) Urine RBC <1 /hpf (0 - 3) Urine Microscopic WBC 1 /HPF (0-3) Urine Squamous Epithelial Cells Few /hpf (<5) Urine Bacteria Few /hpf (None Seen) H Urine Mucus Few (None Seen) Urine Glucose Normal mg/dL (Normal) Microbiology Microbiology Date/Time Source Procedure Growth Status 02/12/25 11:20 Pleural Fluid Gram Stain - Final Resulted 02/12/25 11:20 Pleural Fluid Body Fluid Culture Pending Resulted 02/11/25 02:26 Blood Blood Culture - Preliminary NO GROWTH AFTER 24 HOURS OF INCUBATION. Resulted Assessment/Plan Assessment/Plan Liver lesions of unclear etiology/possible metastasis versus primary Bilateral pleural effusion status post thoracentesis done today by Dr. Connors Ascites Anasarca Anemia Diverticulosis Questionable pneumonitis Hypertension Dyslipidemia History of KS and heart failure Chronic pain syndrome/patient takes heavy narcotics are home Plan: MRI will be done maybe tomorrow. Bone scan pending as well. Awaiting further investigation with cytology and chemistry of the pleural fluid. We will obtain bilateral lower extremities ultrasound rule out DVT. Further plan per orders Plan discussed with: Patient My Orders Orders - TERENCE AVILES MD Procedure Category Date Status Time Hydrocodone-Acet PHA 02/11/25 In Process 10/325mg Tab ([place] 19:15 Hydromorphone Tablet PHA 02/11/25 In Process (Dilaudid Tablet) 19:15 Abdomen With Contrast MRI 02/11/25 Logged 19:11 Nm Bone 3 Phase NM 02/11/25 Logged 19:11 Date of Service: Feb 12, 2025 Billing Provider: TERENCE AVILES MD Common Visit Codes: [id number] INP/OBS CARE(HIGH) TERENCE AVILES MD Feb 12, 2025 18:03
--- NOTE | 2025-02-12 18:51 | DVH ---
Bilateral lower extremity venous duplex Clinical History: BLE DVT Comparison: None Technique: Duplex Doppler evaluation of the deep venous systems of both lower extremities from the common femora l veins to the popliteal veins including color Doppler and spectral/pulsed waveform analysis was perf ormed. Findings: RIGHT SIDE: The common femoral vein demonstrates noncompressibility and no flow There is compressibility/patency of the great saphenous vein at the proximal thigh. The femoral vein demonstrates appropriate compressibility and waveform variability. The deep femoral vein demonstrates appropriate compressibility and waveform variability. The popliteal vein demonstrates appropriate compressibility and waveform variability. There is normal compressibility at the tibioperoneal trunk. LEFT SIDE: The common femoral vein demonstrates noncompressibility and no flow There is compressibility/patency of the great saphenous vein at the proximal thigh. The femoral vein demonstrates appropriate compressibility and waveform variability. The deep femoral vein demonstrates appropriate compressibility and waveform variability. The popliteal vein demonstrates appropriate compressibility and waveform variability. There is normal compressibility at the tibioperoneal trunk. Impression: 1. Nonocclusive thrombus in the right and left common femoral veins consistent with deep venous throm bosis.
--- NOTE | 2025-02-12 19:36 | DVH ---
INDICATION: LIVER LESIONS/ TECHNIQUE: Multiple real-time sonographic images of the abdomen were obtained. COMPARISON: US ABDOMEN LIMITED on DOS: 02/11/25 FINDINGS: The liver is homogenous in echogenicity. The liver measures 13.7 cm. No intrahepatic bilia ry ductal dilatation is noted. The gallbladder wall measures 15.1 mm cm and is unremarkable. No gallstones or sludge is seen. The common duct measures 10.9 mm and is unremarkable. No pericholecystic fluid is noted. Thickening of the gallbladder wall most likely due to ascites The right kidney measures 8.9 cm. No hydronephrosis. The pancreas is not well visualized due to obscuration from bowel gas. IMPRESSION: 1. Echogenic liver with large ill-defined structures largest measures 7 cm. 2. Ascites 3. Thickened gallbladder wall 4. Negative sonographic Winn's sign 5. Right kidney measures 8.9 cm no hydronephrosis
[2025-02-12 20:28] LABS: Hematocrit 31.4 % (41.0-53.0); Hemoglobin 9.8 g/dL (13.5-17.5); Mean Corpuscular Hemoglobin 25.1 pg (28.0-32.0); Mean Corpuscular Volume 80.6 fL (80.0-100.0); Nucleated Red Blood Cells % 0.1 %
--- NOTE | 2025-02-12 23:51 | DVHPN2 ---
Progress Note - Dictate Date Seen: Feb 12, 2025 Medical Necessity Reason Pt with a Central, PICC or Fol: Yes The following are medically ne: Hillman Catheter Reason for hillman catheter: Strict I&O Subjective [facility] Patient seen and examined at bedside. Remains on supplemental oxygen Overnight events reviewed. vital signs Vital Sign Date Time Temp Pulse Resp B/P (MAP) Pulse Ox O2 Delivery O2 Flow Rate FiO2 02/12/25 21:47 84 112/68 02/12/25 20:42 97.6 17 96 97.6 02/12/25 08:00 Nasal Cannula* 3 32 Total Intake and Output 02/11/25 02/11/25 02/12/25 15:00 23:00 07:00 Intake Total 150 ml 300 ml Output Total 2500 ml 400 ml Balance -2350 ml -100 ml medications Current Medications Medications Dose Ordered Sig/Hayley Route Start Time Stop Time Status Last Admin Dose Admin Atorvastatin Calcium 10 mg HS PO 02/11/25 22:00 02/12/25 21:47 10 MG Carvedilol 3.125 mg Q12HR PO 02/11/25 10:00 02/12/25 21:47 3.125 MG Clonidine HCl 0.1 mg Q4HP PRN PO 02/11/25 06:00 Amlodipine Besylate 5 mg DAILY PO 02/11/25 10:00 02/12/25 10:00 5 MG Azithromycin 250 ml @ 125 mls/hr DAILY IV 02/12/25 10:00 02/12/25 10:00 125 MLS/HR Ceftriaxone Sodium 50 ml @ 100 mls/hr DAILY@0530 IV 02/12/25 05:30 02/12/25 05:41 100 MLS/HR Sodium Chloride 10 ml Q8HR IV 02/11/25 06:00 02/12/25 21:46 10 ML Ondansetron HCl 4 mg Q4HP PRN IV 02/11/25 06:00 Docusate Sodium 100 mg BIDPRN PRN PO 02/11/25 06:00 Acetaminophen 650 mg Q6HP PRN PO 02/11/25 06:00 Nitroglycerin 0.4 mg Q5MINP PRN SL 02/11/25 06:00 Morphine Sulfate 2 mg Q30M PRN IV 02/11/25 06:00 Furosemide 20 mg DAILY IV 02/11/25 10:00 02/12/25 10:00 20 MG Acetaminophen/ Hydrocodone Bitart 1 tab Q4HP PRN PO 02/11/25 19:15 Hydromorphone HCl 2 mg Q4HP PRN PO 02/11/25 19:15 02/12/25 20:58 2 MG objective Gen.: Patient lying in bed in no apparent distress. On supplemental oxygen. Head: Normocephalic, atraumatic. Eyes: EOMI/PERRLA. Ears: Normal hearing. Normal anatomy. Neck/trachea: Trachea midline, supple. Nose: Normal external anatomy. Mouth: Moist mucous membranes. Chest: Decreased air entry bilaterally. No wheezing or rhonchi. Cardiovascular: Positive S1, positive S2. Regular rate and rhythm. Abdomen: Positive bowel sounds in all 4 quadrants. Soft, non-tender, non- distended. : Deferred. Rectal: Deferred. Skin: Warm, dry. Intact. Extremities: 2+ radial pulses bilaterally. No lower extremity edema. Neuro: Awake, alert, oriented x3. No gross motor or sensory deficits. Cranial nerves II through XII intact. Gait not assessed laboratory and microbiology Laboratory Tests 02/12/25 19:50 02/12/25 04:36 Test 02/12/25 04:36 Range/Units Serum Glucose 101 74-106 mg/dL Assessment/Plan Impression: Acute hypoxic respiratory failure Dependence on supplemental oxygen Aspiration pneumonia Pleural effusions Atelectasis Ascites Metastatic adenocarcinoma of lung Hx of nicotine dependence Marijuana use. Events: Remains on supplemental oxygen, 2 LPM NC Taper O2 as tolerated CXR notable for small left pleural effusion, multifocal patchy airspace opacity. S/p paracentesis on 02/11/25 with removal of 2100 mL - see separate procedure note for details. Unable to drain completely due to omentum stopping drainage. Will reassess to evaluate if another pocket amenable for paracentesis and do limited chest U/S for left pleural effusion. Continue antibiotics Incentive spirometry Pain control Avoid oversedation Patient underwent left thoracentesis today with 2 liters yellow fluid drained from left pleural space. He tolerated the procedure well. SBP was 98 mmHg post procedure. Gave albumin. Please see separate procedure note for details. Follow up pleural fluid cultures and cytology Diurese with Lasix Monitor renal function Labs and imaging reviewed. Rest of plan as noted below. Plan: Supplemental oxygen Titrate to keep O2 sats above 92%. Head of bed elevation Aspiration precautions Continue antibiotics Incentive spirometry Blood pressure control Pain control Avoid oversedation Diurese to euvolemia with Lasix Monitor renal function. Monitor electrolytes. Supplement as necessary. Monitor ins and outs. Counseled against marijuana use. DVT prophylaxis. Prognosis: Poor given patient's multiple co-morbidities. Rest of plan per hospitalist and other consultants. Thank you, AMITA Morse, for allowing me to participate in this patient's care. Further recommendations will depend on the patient's clinical course. Please do not hesitate to contact me if you have any questions or concerns. This medical document was created using an electronic medical record system with [employer] dictation system. Although these documentations are being carefully reviewed, there may still be some phonetic and typographical changes. The errors are purely typographical, due to imperfection on the software program, and do not reflect any compromise in the patient's medical care. Plan discussed with: Patient, Other (JOVAN Victoria) ISAURO ETIENNE MD Feb 12, 2025 23:51
[2025-02-13] VITALS (8 sets, daily range): BP systolic 102–135; BP diastolic 56–79; PULSE 77–96; RESP 15–18; TEMP 97.4–97.9; O2SAT 92–99
[2025-02-13 03:11] LABS: Hematocrit 28.1 % (41.0-53.0); Hemoglobin 9.0 g/dL (13.5-17.5); Mean Corpuscular Hemoglobin 25.4 pg (28.0-32.0); Mean Corpuscular Volume 79.6 fL (80.0-100.0); Nucleated Red Blood Cells % 0.0 %
--- NOTE | 2025-02-13 12:46 | DVHPN2 ---
Progress Note Date Seen: Feb 13, 2025 Medical Necessity Reason Pt with a Central, PICC or Fol: Yes The following are medically ne: Hillman Catheter Reason for hillman catheter: Strict I&O Subjective Patient reports: No new complaints Review of Systems: HEENT:Normal, CVS:Normal, RESPIRATORY:Normal, GI:Normal, :Normal, MSK:Normal, NEURO:Normal Objective vital signs Vital Sign Date Time Temp Pulse Resp B/P (MAP) Pulse Ox O2 Delivery O2 Flow Rate FiO2 02/13/25 09:59 110/56 02/13/25 09:00 97.6 95 15 96 97.6 02/12/25 20:00 Nasal Cannula* 3 32 Total Intake and Output 02/12/25 02/12/25 02/13/25 15:00 23:00 07:00 Intake Total 350 ml 720 ml 325 ml Output Total 300 ml 400 ml Balance 350 ml 420 ml -75 ml medications Current Medications Medications Dose Ordered Sig/Hayley Route Start Time Stop Time Status Last Admin Dose Admin Atorvastatin Calcium 10 mg HS PO 02/11/25 22:00 02/12/25 21:47 10 MG Carvedilol 3.125 mg Q12HR PO 02/11/25 10:00 02/12/25 21:47 3.125 MG Clonidine HCl 0.1 mg Q4HP PRN PO 02/11/25 06:00 Amlodipine Besylate 5 mg DAILY PO 02/11/25 10:00 02/13/25 09:59 5 MG Azithromycin 250 ml @ 125 mls/hr DAILY IV 02/12/25 10:00 02/13/25 10:00 125 MLS/HR Ceftriaxone Sodium 50 ml @ 100 mls/hr DAILY@0530 IV 02/12/25 05:30 02/13/25 05:52 100 MLS/HR Sodium Chloride 10 ml Q8HR IV 02/11/25 06:00 02/13/25 05:53 10 ML Ondansetron HCl 4 mg Q4HP PRN IV 02/11/25 06:00 Docusate Sodium 100 mg BIDPRN PRN PO 02/11/25 06:00 Acetaminophen 650 mg Q6HP PRN PO 02/11/25 06:00 Nitroglycerin 0.4 mg Q5MINP PRN SL 02/11/25 06:00 Morphine Sulfate 2 mg Q30M PRN IV 02/11/25 06:00 Furosemide 20 mg DAILY IV 02/11/25 10:00 02/13/25 09:59 20 MG Acetaminophen/ Hydrocodone Bitart 1 tab Q4HP PRN PO 02/11/25 19:15 Hydromorphone HCl 2 mg Q4HP PRN PO 02/11/25 19:15 02/13/25 10:36 2 MG Examination: GENERAL:Normal, HEENT:Normal, NECK:Normal, LUNGS:Normal, LUNGS:Abnormal (on oxygen), CVS:Normal, ABDOMEN:Normal, MSK:Normal, SKIN:Normal, NEURO:Normal, :Normal laboratory and microbiology Laboratory Tests 02/13/25 02:40 02/12/25 04:36 Test 02/12/25 04:36 Range/Units Serum Glucose 101 74-106 mg/dL Microbiology Date/Time Source Procedure Growth Status 02/12/25 11:20 Pleural Fluid Gram Stain - Final Resulted 02/12/25 11:20 Pleural Fluid Body Fluid Culture - Preliminary Resulted 02/11/25 02:26 Blood Blood Culture - Preliminary NO GROWTH AFTER 48 HOURS OF INCUBATION. Resulted Problem List/Assessment/Plan Problem List/Assessment/Plan #1 acute resp failure: on oxygen #2 abd pain/liver mass: mri abdomen #3 bilateral dvt: hold anticoag- anemia/thrombocytopenia #4 s/p paracentesis/thoracentesis #5 mod protein malnutrition #6 acute on chronic diastolic heart failure: lasix iv #7 s/p aicd #8 copd #9 cad #10 anemia advance care planning- full code-time spent 19mins Plan discussed with: Patient My Orders My Orders Orders - MEJIA CALHOUN MD Procedure Category Date Status Time Mechanical Soft Diet DIET 02/13/25 Transmitted Lunch Basic Metabolic Panel LAB 02/14/25 Verified 06:00 Complete Blood Count LAB 02/14/25 Verified 06:00 Date of Service: Feb 13, 2025 Billing Provider: MEJIA CALHOUN MD Common Visit Codes: [id number] INP/OBS CARE(HIGH) Secondary Visit Codes: [id number] CARE PLAN 30 MINUTES MEJIA CALHOUN MD Feb 13, 2025 12:46
--- NOTE | 2025-02-13 13:27 | DVHINCON2 ---
GI Consult Consult Note GI consult note Date of Consultation: 02/13/2025 Chief Complaint: Dark stool, hemoglobin dropped Referring Physician: Dr. Gann H&P: 75-year-old male past medical history of hyperlipidemia, and hypertension presented to ER with complains of generalized weakness Patient is complaining of diffuse abdominal pain, for the past four weeks. Also complaining of back pain and knee pain. And the pain medication is not helping. Denies nausea vomiting. No hematemesis. Patient admits to having good appetite. Denies weight loss. Last bowel movement two weeks ago, dark to black in color with slight rust-colored stool No EGD or colonoscopy in past No history of liver problems in past Status post paracentesis with 2 L of fluid removed Past Medical History: Hyperlipidemia, hypertension Past Surgical History: Tonsillectomy Social History: Patient lives at assisted halfway, quit greater than 1 year, denies alcohol, uses marijuana. Family History: Noncontributory Review of Systems: Constitutional: no fever, chill, weight loss HEENT: no eye pain, no hearing loss, no oral lesion, no scleral icterus Heart: no chest pain, no chest pressure Lung: no cough, no dyspnea with exertion Abdomen: see HPI Musculoskeletal: Back pain and knee pain Physical exam: General: NAD, AAOX3 Chest: lung gold clear to auscultation Heart: RRR, no murmur Abdomen: non-distended, generalized tenderness to palpation, +BS Labs: 02/12/25 04:36 Test 02/12/25 04:36 Range/Units Serum Glucose 101 74-106 mg/dL Microbiology Date/Time Source Procedure Growth Status 02/12/25 11:20 Pleural Fluid Gram Stain - Final Resulted 02/12/25 11:20 Pleural Fluid Body Fluid Culture - Preliminary Resulted 02/11/25 02:26 Blood Blood Culture - Preliminary NO GROWTH AFTER 48 HOURS OF INCUBATION. Resulted Imaging: Abdominal ultrasound FINDINGS: IMPRESSION: There is moderate ascites. CT abdomen pelvis IMPRESSION: 1. New small bilateral pleural effusions, [id number]-left, with adjacent atelectasis. Otherwise stable appearing nodular multifocal bibasilar pulmonary infiltrate. 2. Multiple stable appearing hepatic masses concerning for primary and/or metastatic disease. 3. Interval increase in now moderate to large abdominopelvic ascites. 4. Diverticulosis coli without CT evidence of acute diverticulitis. Assessment: Abdominal pain Liver mass Back pain status post paracentesis/thoracentesis Anemia Plan: Discussed with Dr. Jones MRI abdomen pending AFP CEA Monitor labs Stool for occult blood We will continue to monitor patient Date of Service: Feb 13, 2025 Billing Provider: PAMELA NAVA Common Visit Codes: CONSULT ONLY Consultation Codes: [id number] CONSULT <60MIN PAMELA NAVA Feb 13, 2025 13:27
[2025-02-13 15:10] LABS: Hematocrit 33.9 % (41.0-53.0); Hemoglobin 10.5 g/dL (13.5-17.5); Mean Corpuscular Hemoglobin 25.0 pg (28.0-32.0); Mean Corpuscular Volume 80.8 fL (80.0-100.0); Nucleated Red Blood Cells % 0.3 %
--- NOTE | 2025-02-13 17:02 | DVHINCON2 ---
Date of service: Feb 13, 2025 History of Present Illness HPI Patient is a 75-year-old gentleman who presented to the hospital on February 12, 2025 with few weeks of worsening generalized weakness/abdominal pain/dark stool and also shortness of breaths. The patient does have history of ischemic cardiomyopathy and HFimpEF. Has had BiV-ICD implanted. Cardiology was involved for cardiac aspects of care. The patient denies chest pains. He is known to our practice from outside and before. He does have baseline history of noncompliance to medication and follow up. It is of note that for long time he was refusing colonoscopy/ICD. Later, the patient agreed with ICD and [facility] BiV-ICD was implanted. His baseline ejection fraction increased from 25% to around 50%. He is known to have chronic respiratory failure secondary to advanced COPD and lung fibrosis. Last visit to the office and interrogation of the [facility] BiV-ICD was in October 11, 2024. Since arrival to the hospital, he is found to have possible metastatic disease. Home Meds Reported Medications Hydromorphone Hcl (Dilaudid) 2 Mg Tab, 2 TAB PO QID for back and hip pain. 01/13/24 Docusate Sodium (Colace) 100 Mg Cap, 100 MG PO DAILY for constipation, CAP 01/13/24 Aspirin (Aspir-Low) 81 Mg Tab, 81 MG PO DAILY for cardiac 01/13/24 Metoprolol Tartrate (Metoprolol Tartrate) 25 Mg Tab, 25 MG PO PRN for htn 01/13/24 Sacubitril-Valsartan (Entresto 24-26 mg) 1 Tab Tab, 1 TAB PO PRN for htn, TAB 01/13/24 Empagliflozin (Jardiance) 10 Mg Tab, 10 MG PO BID for cardiac, TAB 01/13/24 Carvedilol (Carvedilol) 3.125 Mg Tab, 3.125 MG PO DAILY for cardiac 01/13/24 Rosuvastatin Calcium (Crestor) 10 Mg Tab, 10 MG PO HS for cholesterol, TAB 01/13/24 Past Medical History Others Past medical history includes advanced COPD, lung fibrosis, chronic respiratory failure on home oxygen, history of bronchiectasis, previous systolic heart failure, HFimpEF, ischemic cardiomyopathy, coronary artery disease, status post BiV-ICD ([facility]) implantation, carotid artery plaques, peripheral artery disease, baseline history of left bundle branch block, hyperlipidemia, hypertension, peripheral artery disease, history of cephalic vein thrombosis, kidney stones, hold history of tonsillectomy and chronic pain syndrome. Smokes cigarettes and abuses marijuana. Does have history of noncompliance. Previously refused colonoscopy and ICD. Later, agreed with ICD and had [facility] BiV-ICD implanted (which resulted in improvement of LVEF). Patient Family History: Cardiovascular disease G8 MOTHER G8 FATHER Hypertension G8 MOTHER G8 FATHER Smoker: Positive Alocohol: None Drugs: Marijuana Review of Systems Constitutional: Malaise, Weakness Ears, Nose, & Throat: No symptom reported Eyes: No symptom reported Gastrointestinal: Abdominal Pain, Melena All Other Systems Fourteen point review of system was performed. Relevant findings as per above and as per HPI. Otherwise negative. H&P Exam Vital Signs Vital Signs Date Time Temp Pulse Resp B/P (MAP) Pulse Ox O2 Delivery O2 Flow Rate FiO2 02/13/25 12:30 97.9 95 17 135/77 (96) 99 97.9 02/13/25 08:00 Nasal Cannula* 2 28 General Appeara: Cachetic Neck Exam: Normal inspection Eye Exam: bilateral eye PERRL Mouth: Dry mouth Pulmonary/Respiratory: Rhonci Cardiovascular/Chest: Regular rate, Systolic murmur Peripheral Pulses: 2+ carotid (R), 2+ carotid (L), 2+ femoral (R), 2+ femoral (L) Abdominal Exam: Normal bowel sounds, Other (distended. Mild generalized tenderness+) Neuro/Mental St: Alert, Oriented Labs/Xrays Labs Test 02/13/25 14:59 02/12/25 11:20 02/12/25 04:36 02/11/25 13:00 Range/Units White Blood Count 9.2 # 4.4-10.8 10^3/uL Red Blood Count 4.19 L 4.5-5.90 10^6/uL Hemoglobin 10.5 #L 13.5-17.5 g/dL Hematocrit 33.9 #L 41.0-53.0 % Mean Corpuscular Volume 80.8 80.0-100.0 fL Mean Corpuscular Hemoglobin 25.0 L 28.0-32.0 pg Mean Corpuscular Hemoglobin Concent 31.0 L 32.0-36.0 g/dL Red Cell Distribution Width 22.6 H 11.8-14.3 % Platelet Count 180 140-450 10^3/uL Mean Platelet Volume 8.0 6.9-10.8 fL Neutrophils (%) (Auto) 70.3 37.0-80.0 % Lymphocytes (%) (Auto) 17.2 10.0-50.0 % Monocytes (%) (Auto) 10.5 0.0-12.0 % Eosinophils (%) (Auto) 1.5 0.0-7.0 % Basophils (%) (Auto) 0.5 0.0-2.0 % Neutrophils # (Auto) 6.5 1.6-8.6 10 ^3/uL Lymphocytes # (Auto) 1.6 0.4-5.4 10 ^3/uL Monocytes # (Auto) 1.0 0-1.3 10 ^3/uL Eosinophils # (Auto) 0.1 0-0.8 10 ^3/uL Basophils # (Auto) 0 0-0.2 10 ^3/uL Nucleated Red Blood Cells 0.3 % Body Fluid Source Pleural fluid (left) Body Fluid pH 8.0 Body Fluid WBC (Manual) 74 0-200 CUMM Body Fluid RBC (Manual) 502 0-2000 CUMM Body Fluid Mononuclear Cells 86 % Body Fluid Polymorphonuclear Cells 14 0-25 % Sodium Level 142 136-145 mmol/L Potassium Level 4.0 3.5-5.1 mmol/L Chloride Level 105 98-107 mmol/L Carbon Dioxide Level 28 20-31 mmol/L Anion Gap 9 5-15 Blood Urea Nitrogen 11 9-23 mg/dL Creatinine 0.78 0.700-1.30 mg/dL Glomerular Filtration Rate Calc 92 >90 mL/min BUN/Creatinine Ratio 14.1 10.0-20.0 Serum Glucose 101 74-106 mg/dL Calcium Level 9.4 8.7-10.4 mg/dL Total Bilirubin 0.7 0.2-1.0 mg/dL Aspartate Amino Transferase (AST) 52 H 13-40 U/L Alanine Aminotransferase (ALT) 11 7-40 U/L Alkaline Phosphatase 53 46-116 U/L Total Protein 6.2 5.7-8.2 g/dL Albumin 3.2 3.2-4.8 g/dL Lipase 29 12-53 U/L Test 02/11/25 06:00 02/11/25 05:36 02/11/25 04:30 02/11/25 02:26 Range/Units Urine Color Yellow Yellow Urine Clarity Clear Clear Urine pH 6.0 5.0-9.0 Urine Specific [place] > 1.050 H 1.001-1.035 Urine Protein Trace H Negative Urine Ketones Negative Negative Urine Blood Negative Negative /uL Urine Nitrite Negative Negative Urine Bilirubin Negative Negative Urine Urobilinogen Normal Negative mg/dL Urine Leukocyte Esterase Negative Negative /uL Urine RBC <1 0 - 3 /hpf Urine Microscopic WBC 1 0-3 /HPF Urine Squamous Epithelial Cells Few <5 /hpf Urine Bacteria Few H None Seen /hpf Urine Mucus Few None Seen Urine Glucose Normal Normal mg/dL Troponin I High Sensitivity 6 </=54 ng/L Lactic Acid Level 1.9 0.4-2.0 mmol/L Prothrombin Time 14.0 H 9.3-11.8 sec Prothrombin Time INR 1.36 H 0.9-1.15 Activated Partial Thromboplast Time 31.7 24.5-34.5 SEC Magnesium Level 2.0 1.6-2.6 mg/dL B-Type Natriuretic Peptide 395.65 0-100 pg/mL Microbiology Date/Time Source Procedure Growth Status 02/12/25 11:20 Pleural Fluid Gram Stain - Final Resulted 02/12/25 11:20 Pleural Fluid Body Fluid Culture - Preliminary Resulted 02/11/25 02:26 Blood Blood Culture - Preliminary NO GROWTH AFTER 48 HOURS OF INCUBATION. Resulted Assessment/Plan Plan Patient is a 75-year-old gentleman who presented to the hospital on February 12, 2025 with few weeks of worsening generalized weakness/abdominal pain/dark stool and also shortness of breaths. The patient does have history of ischemic cardio myopathy and HFimpEF. Has had BiV-ICD implanted. Cardiology was involved for cardiac aspects of care. The patient denies chest pains. He is known to our practice from outside and before. He does have baseline history of noncompliance to medication and follow up. It is of note that for long time he was refusing colonoscopy/ICD. Later, the patient agreed with ICD and [facility] BiV-ICD was implanted. His baseline ejection fraction increased from 25% to around 50%. He is known to have chronic respiratory failure secondary to advanced COPD and lung fibrosis. Last visit to the office and interrogation of the [facility] BiV-ICD was in October 11, 2024. Since arrival to the hospital, he is found to have possible metastatic disease. As outpatient, the patient is on Entresto/Jardiance/Toprol-XL/Crestor and aspirin Cachectic patient. Lying flat in bed. No JVD. Mucosa is pale. Mucosa is dry. No gross goiter. Not using accessory muscles of breathing. Scattered rhonchi in the lungs is heard. Cardiac: Regular, systolic murmur 3/6 in the apex S2 heard. Abdomen is flat. Some hot tender. Bowel sound is positive. Extremities revealed 2+ edema bilaterally. Dorsalis pedis is 1+ bilateral Past medical history includes advanced COPD, lung fibrosis, chronic respiratory failure on home oxygen, history of bronchiectasis, previous systolic heart failure, HFimpEF, ischemic cardiomyopathy, coronary artery disease, status post BiV-ICD ([facility]) implantation, carotid artery plaques, peripheral artery disease, baseline history of left bundle branch block, hyperlipidemia, hypertension, peripheral artery disease, history of cephalic vein thrombosis, kidney stones, hold history of tonsillectomy and chronic pain syndrome. Smokes cigarettes and abuses marijuana. Does have history of noncompliance. Previously refused colonoscopy and ICD. Later, agreed with ICD and had [facility] BiV-ICD implanted (which resulted in improvement of LVEF). Echocardiogram of December 24, 2023 (performed in the office) revealed ejection fraction of 20-25%, [id number] aortic insufficiency, mild mitral regurgitation/tricuspid regurgitation/pulmonary insufficiency and right ventricular systolic pressure of less than 35 mm Hg. Echocardiogram of September 27, 2024 (performed in the office) revealed ejection fraction of 50-55%, pacemaker wire in the right-sided chambers, [id number] aortic insufficiency, mild MR/TR/PI and right ventricular systolic pressure of less than 35 mm Hg. Left heart catheterization of January 15, 2024 revealed ischemic cardiomyopathy, proximal LAD with 40% lesions, mid to distal LAD became small caliber vessel with 80% diffuse disease. Proximal left circumflex revealed chronic dissection with reinstitution of the vessel. There was patent stenting RCA. There was systolic compression of right posterolateral branch. Ejection fraction was 35% Hemoglobin: 10.4 - 9.7 - 9.8 - 10.5 Potassium: 3.7 - 4.0 Creatinine: 0.86 - 0.78 Lactic acid: 2.2 - 1.9 AST/ALT: 65/12 Troponin (high sensitive): 6 - 4 - 6 BNP: 395.65 Chest x-ray revealed: IMPRESSION: 1. Small left pleural effusion. 2. Chronic appearing bilateral interstitial pulmonary markings. Repeat chest x-ray revealed: IMPRESSION: Similar lung aeration bilaterally. No pneumothorax is seen. Abdomen and pelvic CT scan reported: IMPRESSION: 1. New small bilateral pleural effusions, [id number]-left, with adjacent atelectasis. Otherwise stable appearing nodular multifocal bibasilar pulmonary infiltrate. 2. Multiple stable appearing hepatic masses concerning for primary and/or metastatic disease. 3. Interval increase in now moderate to large abdominopelvic ascites. 4. Diverticulosis coli without CT evidence of acute diverticulitis. Venous duplex of lower extremities reported: 1. Nonocclusive thrombus in the right and left common femoral veins consistent with deep venous thrombosis. Abdominal ultrasound reported: IMPRESSION: 1. Echogenic liver with large ill- defined structures largest measures 7 cm. 2. Ascites 3. Thickened gallbladder wall 4. Negative sonographic Winn's sign 5. Right kidney measures 8.9 cm no hydronephrosis EKG revealed atrial sensing, ventricular pacing Tele reveals sinus rhythm with a occasions of PVC and couplets/triplets. Echocardiogram reported: Technically good study. Sinus rhythm. Aortic root enlargement. Concentric LVH. Valves are normal. EF of 55% with normal RV function. Moderate tricuspid insufficiency. Mild aortic insufficiency. Moderate mitral insufficiency. Mild pulmonic insufficiency. Pacing lead noted in RV. Large pleural effusion. No intracardiac masses thrombi or vegetations Patient is a 75-year-old gentleman who presented with generalized weakness, abdominal pain, abdominal distention, dark stool and shortness of breaths. He is found to have multiple lesions in liver and lung. Presentation is questioning metastatic disease. Looks cachectic. Has had thoracentesis and abdominal paracentesis by quality assurance lead since admission. It is of note that the patient's cardiac history includes heart failure with improved systolic function. He has past history also includes noncompliance with medication and follow ups. He is found to have anemia also. He is also found to have DVT of bilateral lower extremities which itself could have happened secondary to the presence of metastatic disease. Presentation is not consider cardiac at this point. Does have baseline history of heart failure but clinically it is compensated. Acute coronary syndrome is not consider it. Recognizing dark stools, GI bleeding could be considered also. Pleural effusion Ascites Cachexia Multiple hepatic mass Anemia Acute on chronic respiratory failure Diverticulosis Anasarca Protein calorie malnutrition DVT Ischemic cardiomyopathy Heart failure with improved systolic function HFimpEF Coronary artery disease Baseline left bundle-branch block Status post BiV-ICD implantation ([facility]) Bronchiectasis Lung fibrosis Advanced COPD on home oxygen Marijuana abuse Cigarette smoker Noncompliance to medication follow up Cardiac suggestion for management: Manage on telemetry Follow up electrolytes and kidney function tests and correct abnormalities. Potassium above 4 and magnesium above 2 Consider TFT Request for interrogation of [facility] [employer] (BiV-ICD) Full anticoagulation for DVT is suggested Consider obtaining tissue for confirming metastatic disease Continuation of Entresto is suggested GI consult Guideline directed medical therapy for systolic heart failure Thank you for consultation Further evaluation and management depends on the above and clinical course A total of 75 minutes was spent reviewing the patient record, examining the patient, making a diagnostic and therapeutic plan, discussing this plan with medical personnel, following up on diagnostic studies and following the patient for clinical stability excluding any and all procedures. At least 50% of this time was spent in direct, [id number] contact. Thank you for allowing me to participate in this patient's care. Further recommendations will depend on patient's clinical course. Please do not hesitate to contact me if you have any questions or concerns. This medical document was created using electronic medical record system with [employer] computerized dictation system. Although this document has been carefully reviewed, there may still be some phonetic and typographical errors. These areas are purely typographical due to the imperfection of the software programs, and do not reflect any compromise in the patient's medical care. Plan discussed with: Patient, Other (nurse) SHANIA HERNANDEZ MD Feb 13, 2025 17:02
[2025-02-13 20:23] LABS: Nucleated Red Blood Cells % 0.0 %
[2025-02-13 20:25] LABS: Hematocrit 30.3 % (41.0-53.0); Hemoglobin 9.4 g/dL (13.5-17.5); Mean Corpuscular Hemoglobin 24.8 pg (28.0-32.0); Mean Corpuscular Volume 79.8 fL (80.0-100.0)
[2025-02-14] VITALS (9 sets, daily range): BP systolic 92–103; BP diastolic 56–65; PULSE 77–89; RESP 16–18; TEMP 97.5–98.3; O2SAT 90–99
[2025-02-14] MEDS ORDERED: EZ PAQUE SUSP 12OZ BTL ONE (07:14)
[2025-02-14] MEDS ORDERED: GADOTERATE MEG 10 MMOL/20ml INJ (0.5MMOL/ml) IV ONE (07:15)
--- NOTE | 2025-02-14 08:01 | DVHPN2 ---
Progress Note - Dictate Date Seen: Feb 14, 2025 Medical Necessity Reason Pt with a Central, PICC or Fol: Yes The following are medically ne: Hillman Catheter Reason for hillman catheter: Strict I&O vital signs Vital Sign Date Time Temp Pulse Resp B/P (MAP) Pulse Ox O2 Delivery O2 Flow Rate FiO2 02/14/25 05:00 98.2 85 17 92/62 (72) 93 98.2 02/13/25 20:00 Nasal Cannula* 2 28 Total Intake and Output 02/13/25 02/13/25 02/14/25 15:00 23:00 07:00 Intake Total 0 ml 350 ml 550 ml Output Total 200 ml 350 ml Balance 0 ml 150 ml 200 ml medications Current Medications Medications Dose Ordered Sig/Hayley Route Start Time Stop Time Status Last Admin Dose Admin Atorvastatin Calcium 10 mg HS PO 02/11/25 22:00 02/13/25 21:37 10 MG Carvedilol 3.125 mg Q12HR PO 02/11/25 10:00 02/13/25 21:37 3.125 MG Clonidine HCl 0.1 mg Q4HP PRN PO 02/11/25 06:00 Ceftriaxone Sodium 50 ml @ 100 mls/hr DAILY@0530 IV 02/12/25 05:30 02/14/25 04:40 100 MLS/HR Sodium Chloride 10 ml Q8HR IV 02/11/25 06:00 02/14/25 06:45 10 ML Ondansetron HCl 4 mg Q4HP PRN IV 02/11/25 06:00 Docusate Sodium 100 mg BIDPRN PRN PO 02/11/25 06:00 Acetaminophen 650 mg Q6HP PRN PO 02/11/25 06:00 Nitroglycerin 0.4 mg Q5MINP PRN SL 02/11/25 06:00 Morphine Sulfate 2 mg Q30M PRN IV 02/11/25 06:00 Furosemide 20 mg DAILY IV 02/11/25 10:00 02/12/25 10:00 20 MG Acetaminophen/ Hydrocodone Bitart 1 tab Q4HP PRN PO 02/11/25 19:15 Hydromorphone HCl 2 mg Q4HP PRN PO 02/11/25 19:15 02/14/25 04:41 2 MG laboratory and microbiology Laboratory Tests 02/13/25 19:57 02/12/25 04:36 Test 7/27/25 04:36 Range/Units Serum Glucose 101 74-106 mg/dL Assessment/Plan Patient is a 75-year-old gentleman who presented to the hospital on February 12, 2025 with few weeks of worsening generalized weakness/abdominal pain/dark stool and also shortness of breaths. The patient does have history of ischemic cardiomyopathy and HFimpEF. Has had BiV-ICD implanted. Cardiology was involved for cardiac aspects of care. The patient denies chest pains. He is known to our practice from outside and before. He does have baseline history of noncompliance to medication and follow up. It is of note that for long time he was refusing colonoscopy/ICD. Later, the patient agreed with ICD and [facility] BiV-ICD was implanted. His baseline ejection fraction increased from 25% to around 50%. He is known to have chronic respiratory failure secondary to advanced COPD and lung fibrosis. Last visit to the office and interrogation of the [facility] BiV-ICD was in October 11, 2024. Since arrival to the hospital, he is found to have possible metastatic disease. As outpatient, the patient is on Entresto/Jardiance/Toprol-XL/Crestor and aspirin Cachectic patient. Lying flat in bed. No JVD. Mucosa is pale. Mucosa is dry. No gross goiter. Not using accessory muscles of breathing. Scattered rhonchi in the lungs is heard. Cardiac: Regular, systolic murmur 3/6 in the apex S2 heard. Abdomen is flat. Some hot tender. Bowel sound is positive. Extremities revealed 2+ edema bilaterally. Dorsalis pedis is 1+ bilateral Past medical history includes advanced COPD, lung fibrosis, chronic respiratory failure on home oxygen, history of bronchiectasis, previous systolic heart failure, HFimpEF, ischemic cardiomyopathy, coronary artery disease, status post BiV-ICD ([facility]) implantation, carotid artery plaques, peripheral artery disease, baseline history of left bundle branch block, hyperlipidemia, hypertension, peripheral artery disease, history of cephalic vein thrombosis, kidney stones, hold history of tonsillectomy and chronic pain syndrome. Smokes cigarettes and abuses marijuana. Does have history of noncompliance. Previously refused colonoscopy and ICD. Later, agreed with ICD and had [facility] BiV-ICD implanted (which resulted in improvement of LVEF). Echocardiogram of December 24, 2023 (performed in the office) revealed ejection fraction of 20-25%, [id number] aortic insufficiency, mild mitral regurgitation/tricuspid regurgitation/pulmonary insufficiency and right ventricular systolic pressure of less than 35 mm Hg. Echocardiogram of September 27, 2024 (performed in the office) revealed ejection fraction of 50-55%, pacemaker wire in the right-sided chambers, [id number] aortic insufficiency, mild MR/TR/PI and right ventricular systolic pressure of less than 35 mm Hg. Left heart catheterization of January 15, 2024 revealed ischemic cardiomyopathy, proximal LAD with 40% lesions, mid to distal LAD became small caliber vessel with 80% diffuse disease. Proximal left circumflex revealed chronic dissection with reinstitution of the vessel. There was patent stenting RCA. There was systolic compression of right posterolateral branch. Ejection fraction was 35% Hemoglobin: 10.4 - 9.7 - 9.8 - 10.5 - 9.4 Potassium: 3.7 - 4.0 Creatinine: 0.86 - 0.78 Lactic acid: 2.2 - 1.9 AST/ALT: 65/12 - 52/11 Troponin (high sensitive): 6 - 4 - 6 BNP: 395.65 Chest x-ray revealed: IMPRESSION: 1. Small left pleural effusion. 2. Chronic appearing bilateral interstitial pulmonary markings. Repeat chest x-ray revealed: IMPRESSION: Similar lung aeration bilaterally. No pneumothorax is seen. Abdomen and pelvic CT scan reported: IMPRESSION: 1. New small bilateral pleural effusions, lrvjr-qdnckuw-[id number]-left, with adjacent atelectasis. Otherwise stable appearing nodular multifocal bibasilar pulmonary infiltrate. 2. Multiple stable appearing hepatic masses concerning for primary and/or metastatic disease. 3. Interval increase in now moderate to large abdominopelvic ascites. 4. Diverticulosis coli without CT evidence of acute diverticulitis. Venous duplex of lower extremities reported: 1. Nonocclusive thrombus in the right and left common femoral veins consistent with deep venous thrombosis. Abdominal ultrasound reported: IMPRESSION: 1. Echogenic liver with large ill- defined structures largest measures 7 cm. 2. Ascites 3. Thickened gallbladder wall 4. Negative sonographic Winn's sign 5. Right kidney measures 8.9 cm no hydronephrosis EKG revealed atrial sensing, ventricular pacing Tele reveals sinus rhythm with a occasions of PVC and couplets/triplets. Echocardiogram reported: Technically good study. Sinus rhythm. Aortic root enlargement. Concentric LVH. Valves are normal. EF of 55% with normal RV function. Moderate tricuspid insufficiency. Mild aortic insufficiency. Moderate mitral insufficiency. Mild pulmonic insufficiency. Pacing lead noted in RV. Large pleural effusion. No intracardiac masses thrombi or vegetations Patient is a 75-year-old gentleman who presented with generalized weakness, abdominal pain, abdominal distention, dark stool and shortness of breaths. He is found to have multiple lesions in liver and lung. Presentation is questioning metastatic disease. Looks cachectic. Has had thoracentesis and abdominal paracentesis by mercury cell cleaner since admission. It is of note that the patient's cardiac history includes heart failure with improved systolic function. He has past history also includes noncompliance with medication and follow ups. He is found to have anemia also. He is also found to have DVT of bilateral lower extremities which itself could have happened secondary to the presence of metastatic disease. Presentation is not consider cardiac at this point. Does have baseline history of heart failure but clinically it is compensated. Acute coronary syndrome is not consider it. Recognizing dark stools, GI bleeding could be considered also. Pleural effusion Ascites Cachexia Multiple hepatic mass Anemia Acute on chronic respiratory failure Diverticulosis Anasarca Protein calorie malnutrition DVT Ischemic cardiomyopathy Heart failure with improved systolic function HFimpEF Coronary artery disease Baseline left bundle-branch block Status post BiV-ICD implantation ([facility]) Bronchiectasis Lung fibrosis Advanced COPD on home oxygen Marijuana abuse Cigarette smoker Noncompliance to medication follow up Cardiac suggestion for management: Manage on telemetry Follow up electrolytes and kidney function tests and correct abnormalities. Potassium above 4 and magnesium above 2 Consider TFT Request for interrogation of [facility] (BiV-ICD) Full anticoagulation for DVT is suggested Consider obtaining tissue for confirming metastatic disease Restart Entresto GI follow up Guideline directed medical therapy for systolic heart failure Pain management as per primary team Further evaluation and management depends on the above and clinical course A total of 55 minutes was spent reviewing the patient record, examining the patient, making a diagnostic and therapeutic plan, discussing this plan with medical personnel, following up on diagnostic studies and following the patient for clinical stability excluding any and all procedures. At least 50% of this time was spent in direct, [id number] contact. Thank you for allowing me to participate in this patient's care. Further recommendations will depend on patient's clinical course. Please do not hesitate to contact me if you have any questions or concerns. This medical document was created using electronic medical record system with [employer]ate computerized dictation system. Although this document has been carefully reviewed, there may still be some phonetic and typographical errors. These areas are purely typographical due to the imperfection of the software programs, and do not reflect any compromise in the patient's medical care. Plan discussed with: Patient, Other (nurse) SHANIA HERNANDEZ MD Feb 14, 2025 08:01
[2025-02-14] MEDS: SACUBITRIL-VALSARTAN 24mg/26mg TAB PO SCH (10:00)
[2025-02-14] MEDS ORDERED: GELATIN 1 SPONGE SIZE 50 TOP ONE (11:58)
[2025-02-14] MEDS ORDERED: LIDOCAINE 2%HCL (LOCAL ANESTH.) INJ 10ml MDV ONE (12:11)
--- NOTE | 2025-02-14 12:30 | DVHPN2 ---
Progress Note Date Seen: Feb 14, 2025 Medical Necessity Reason Pt with a Central, PICC or Fol: Yes The following are medically ne: Hillman Catheter Reason for hillman catheter: Strict I&O Subjective Patient reports: No new complaints Review of Systems: HEENT:Normal, CVS:Normal, RESPIRATORY:Normal, GI:Normal, :Normal, MSK:Normal, NEURO:Normal Objective vital signs Vital Sign Date Time Temp Pulse Resp B/P (MAP) Pulse Ox O2 Delivery O2 Flow Rate FiO2 02/14/25 09:35 91 103/59 02/14/25 05:00 98.2 17 93 98.2 02/13/25 20:00 Nasal Cannula* 2 28 Total Intake and Output 02/13/25 02/13/25 02/14/25 15:00 23:00 07:00 Intake Total 0 ml 350 ml 550 ml Output Total 200 ml 350 ml Balance 0 ml 150 ml 200 ml medications Current Medications Medications Dose Ordered Sig/Hayley Route Start Time Stop Time Status Last Admin Dose Admin Atorvastatin Calcium 10 mg HS PO 02/11/25 22:00 02/13/25 21:37 10 MG Carvedilol 3.125 mg Q12HR PO 02/11/25 10:00 02/14/25 09:35 3.125 MG Clonidine HCl 0.1 mg Q4HP PRN PO 02/11/25 06:00 Ceftriaxone Sodium 50 ml @ 100 mls/hr DAILY@0530 IV 02/12/25 05:30 02/14/25 04:40 100 MLS/HR Sodium Chloride 10 ml Q8HR IV 02/11/25 06:00 02/14/25 06:45 10 ML Ondansetron HCl 4 mg Q4HP PRN IV 02/11/25 06:00 Docusate Sodium 100 mg BIDPRN PRN PO 02/11/25 06:00 Acetaminophen 650 mg Q6HP PRN PO 02/11/25 06:00 Nitroglycerin 0.4 mg Q5MINP PRN SL 02/11/25 06:00 Morphine Sulfate 2 mg Q30M PRN IV 02/11/25 06:00 Furosemide 20 mg DAILY IV 02/11/25 10:00 02/12/25 10:00 20 MG Acetaminophen/ Hydrocodone Bitart 1 tab Q4HP PRN PO 02/11/25 19:15 Hydromorphone HCl 2 mg Q4HP PRN PO 02/11/25 19:15 02/14/25 09:37 2 MG Sacubitril/ Valsartan 1 tab BID PO 02/14/25 10:00 Examination: GENERAL:Normal, HEENT:Normal, NECK:Normal, LUNGS:Normal, CVS:Normal, ABDOMEN:Normal, MSK:Normal, SKIN:Normal, NEURO:Normal, :Normal laboratory and microbiology Laboratory Tests 02/13/25 19:57 02/12/25 04:36 Test 02/12/25 04:36 Range/Units Serum Glucose 101 74-106 mg/dL Microbiology Date/Time Source Procedure Growth Status 02/12/25 11:20 Pleural Fluid Gram Stain - Final Resulted 02/12/25 11:20 Pleural Fluid Body Fluid Culture - Preliminary Resulted 02/11/25 02:26 Blood Blood Culture - Preliminary NO GROWTH AFTER 72 HOURS OF INCUBATION. Resulted Problem List/Assessment/Plan Problem List/Assessment/Plan #1 acute resp failure: on oxygen #2 abd pain/liver mass: liver biopsy, bone scan #3 bilateral dvt: hold anticoag- anemia/thrombocytopenia #4 s/p paracentesis/thoracentesis #5 mod protein malnutrition #6 acute on chronic diastolic heart failure: lasix iv #7 s/p aicd #8 copd #9 cad #10 anemia advance care planning- full code-time spent 19mins Plan discussed with: Other (rn) My Orders My Orders Orders - MEJIA CALHOUN MD Procedure Category Date Status Time Basic Metabolic Panel LAB 02/14/25 Logged 06:00 Complete Blood Count LAB 02/14/25 Logged 06:00 * Cardiology Consult CONS 02/13/25 Transmitted 12:51 Date of Service: Feb 14, 2025 Billing Provider: MEJIA CALHOUN MD Common Visit Codes: 82422-[id number] INP/OBS CARE(HIGH) Secondary Visit Codes: 66308-[id number] CARE PLAN 30 MINUTES MEJIA CALHOUN MD Feb 14, 2025 12:30
[2025-02-14 14:07] LABS: Glucose, Body Fluid 137.0 mg/dL (.); LD, Body Fluid 88.0 IU/L (.)
[2025-02-14 14:07] LABS: Albumin, Body Fluid 1.2 g/dL (Not Estab.); Glucose, Body Fluid 105.0 mg/dL (.)
--- NOTE | 2025-02-14 14:14 | DVH ---
PROCEDURE: Ultrasound-guided paracentesis Procedural Personnel Attending physician(s): Maciel Hartmann Fellow physician(s): None Resident physician(s): None Advanced practice provider(s): None Pre-procedure diagnosis: Ascites Post-procedure diagnosis: Same Indication: ASCITES Additional clinical history: None Complications: No immediate complications. IMPRESSION: Ultrasound-guided paracentesis with drainage of 2200 mL of serous fluid. Plan: Resume care by clinical team. PROCEDURE SUMMARY: - Ultrasound-guided paracentesis - Additional procedure(s): None PROCEDURE DETAILS: Pre-procedure Consent: Informed consent for the procedure including risks, benefits and alternatives was obtained a nd time-out was performed prior to the procedure. Preparation: The site was prepared and draped using maximal sterile barrier technique including cutan eous antisepsis. Anesthesia/sedation Level of anesthesia/sedation: No sedation Anesthesia/sedation administered by: Not applicable Total intra-service sedation time (minutes): Not applicable Initial abdominal ultrasound Initial abdominal ultrasound was performed. Findings: Small ascites. Paracentesis Local anesthesia was administered. A safe window for paracentesis was identified with ultrasound. The peritoneal cavity was accessed and fluid return confirmed position. Ascites was drained. The cathete r was removed and a sterile dressing was applied. Catheter size (Fr):5 Fluid appearance: serous Volume drained (mL): 2200 Post-drainage ultrasound: Not performed Albumin Administration Grams of albumin given intravenously: None Additional Details Additional description of procedure: None Registry event: V/3/f Device used: None Equipment details: None Specimens removed: Aspirated fluid was sent for analysis. Estimated blood loss (mL): Less than 10 Standardized report: [email or web address] Attestation Signer name: Maciel Hartmann I attest that I was present for the entire procedure. I reviewed the stored images and agree with the report as written.
--- NOTE | 2025-02-14 14:18 | DVH ---
PROCEDURE: Ultrasound-guided biopsy Procedural Personnel Attending physician(s): Maciel Hartmann Fellow physician(s): None Resident physician(s): None Advanced practice provider(s): None Procedure Date (//yyyy): 02/14/2025 Pre-procedure diagnosis: Liver mass Post-procedure diagnosis: Same Indication: Histopathologic diagnosis Previous biopsy of same target: No Additional clinical history: None Complications: No immediate complications. IMPRESSION: Ultrasound-guided biopsy of left hepatic lobe mass. 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 Plan: Specimen(s) sent for evaluation. PROCEDURE SUMMARY: - Percutaneous US-guided coaxial core needle biopsy - Additional procedure(s): None PROCEDURE DETAILS: Pre-procedure Reference imaging for biopsy target: Liver US 02/12/2025 Consent: Informed consent for the procedure including risks, benefits and alternatives was obtained a nd time-out was performed prior to the procedure. Preparation: The site was prepared and draped using maximal sterile barrier technique including cutan eous antisepsis. Anesthesia/sedation Level of anesthesia/sedation: No sedation Anesthesia/sedation administered by: Not applicable Total intra-service sedation time (minutes): 0 Imaging prior to biopsy The patient was positioned supine. Initial imaging was performed. Biopsy target: - Organ or target location: Liver - Laterality: Single Organ - Maximal diameter (cm): 6.4 Other findings: None Biopsy Local anesthesia was administered. Under US guidance, the biopsy needle was advanced to the target an d biopsy was performed. Coaxial needle: 17 gauge Core needle biopsy device: Biopince Core needle size: 18 gauge Number of core specimens: 2 Fine needle aspiration device: NA Fine needle size: Not applicable Number of FNA specimens: Not applicable On-site assessment of biopsy adequacy: No Additional sampling recommendations: None Preliminary assessment of sample adequacy: Not applicable Needle removal The biopsy needle was removed and a sterile dressing was applied. Tract embolization: Gelfoam pledgets Imaging following biopsy Immediate post-biopsy ultrasound was performed. Post-biopsy imaging findings: No significant hemorrhage Additional Details Additional description of procedure: None Registry event: V/3/g Device used: None Equipment details: None Unique Device Identifiers: Not available Specimens removed: Biopsy samples as detailed above Estimated blood loss (mL): Less than 10 Standardized report: [email or web address] Attestation Signer name: Maciel Hartmann I attest that I was present for the entire procedure. I reviewed the stored images and agree with the report as written.
--- NOTE | 2025-02-14 15:59 | DVHPN2 ---
Progress Note Date Seen: Feb 14, 2025 Resident Creating Document: INDERJIT INTERIANO RESIDENT Has the PT tested + for MRSA If YES, has PT been informed?: No Medical Necessity Reason Pt with a Central, PICC or Fol: Yes The following are medically ne: Hillman Catheter Reason for hillman catheter: Strict I&O Subjective Review of Systems 02/14/25 75-year-old male with a complex history including advanced COPD, ischemic cardiomyopathy with BiV-ICD, chronic respiratory failure, bilateral DVT, and multiple hepatic masses suspicious for malignancy. He presented with worsening generalized weakness, abdominal pain, abdominal distention, and dark stools. * MRI Abdomen scheduled today was canceled because the patient could not hold his breath for 15 seconds. * Underwent ultrasound-guided liver biopsy today; samples sent for pathology (no immediate complications). * Underwent ultrasound-guided paracentesis today with drainage of 2200 mL serous fluid (no immediate complications). * Nuclear medicine whole-body scan is scheduled for further staging. * Paracentesis fluid sent for analysis, culture, and cytology. Gram stain: no organisms; Culture: no growth to date. * Ascitic fluid analysis: WBC 93, RBC 3965 (high), mononuclear cells 90%, polymorphonuclear 10%, glucose 137, total protein pending, LDH pending. * Pleural fluid (02/12): pH 8.0, WBC 74, protein 2.0, LDH 88 (transudative pattern). * Pain is persistent but controlled with Dilaudid. * Bowel movement last on 02/10, dark stools reported previously. * Physical findings: bilateral pitting edema noted. * Current medications: Ceftriaxone IV, Dilaudid PO, Lasix IV, Sacubitril/valsartan, atorvastatin, coreg, and supportive care. Summary of New Findings * Liver Biopsy: Completed; specimen pending pathology. * Paracentesis: 2.2 L ascitic fluid removed; cytology and chemistry pending. * CT Abdomen/Pelvis: Multiple stable hepatic masses (largest 8 cm), interval increase in hgewbpod-qq-[id number] ascites, bilateral pleural effusions, diverticulosis, no lymphadenopathy. * Abdominal Ultrasound: Large ill-defined liver masses (largest 7 cm), thickened gallbladder wall likely due to ascites, negative Dublin sign. * Labs: Hgb 9.4 (low), Albumin 3.2 (low), AST 52 (elevated), ALT 11 (normal), WBC 8.3 (normal), Platelets 159K. Review of Systems * Constitutional: Fatigue, cachexia, no fever/chills. * GI: Abdominal distention, pain, history of melena, no hematemesis. * : Hillman catheter in place, no dysuria. * CV: Bilateral pitting edema, no chest pain. * Pulmonary: Dyspnea on exertion, oxygen dependent. * Neuro: Alert, oriented. Objective vital signs Vital Sign Date Time Temp Pulse Resp B/P (MAP) Pulse Ox O2 Delivery O2 Flow Rate FiO2 02/14/25 10:35 74 02/14/25 09:35 103/59 02/14/25 09:00 97.5 18 97 97.5 02/14/25 08:00 Nasal Cannula* 2 28 Total Intake and Output 02/13/25 02/13/25 02/14/25 15:00 23:00 07:00 Intake Total 0 ml 350 ml 550 ml Output Total 200 ml 350 ml Balance 0 ml 150 ml 200 ml medications Current Medications Medications Dose Ordered Sig/Hayley Route Start Time Stop Time Status Last Admin Dose Admin Atorvastatin Calcium 10 mg HS PO 02/11/25 22:00 02/13/25 21:37 10 MG Carvedilol 3.125 mg Q12HR PO 02/11/25 10:00 02/14/25 09:35 3.125 MG Clonidine HCl 0.1 mg Q4HP PRN PO 02/11/25 06:00 Ceftriaxone Sodium 50 ml @ 100 mls/hr DAILY@0530 IV 02/12/25 05:30 02/14/25 04:40 100 MLS/HR Sodium Chloride 10 ml Q8HR IV 02/11/25 06:00 02/14/25 06:45 10 ML Ondansetron HCl 4 mg Q4HP PRN IV 02/11/25 06:00 Docusate Sodium 100 mg BIDPRN PRN PO 02/11/25 06:00 Acetaminophen 650 mg Q6HP PRN PO 02/11/25 06:00 Nitroglycerin 0.4 mg Q5MINP PRN SL 02/11/25 06:00 Morphine Sulfate 2 mg Q30M PRN IV 02/11/25 06:00 Furosemide 20 mg DAILY IV 02/11/25 10:00 02/12/25 10:00 20 MG Acetaminophen/ Hydrocodone Bitart 1 tab Q4HP PRN PO 02/11/25 19:15 Hydromorphone HCl 2 mg Q4HP PRN PO 02/11/25 19:15 02/14/25 14:28 2 MG Sacubitril/ Valsartan 1 tab BID PO 02/14/25 10:00 Examination * General: Cachectic, chronically ill, lying in bed. * Abdomen: Distended, generalized tenderness, no rebound/guarding, positive bowel sounds. * Extremities: 2+ bilateral pitting edema. * Skin: No jaundice. * CV: Regular rate, systolic murmur. * Pulmonary: Diminished breath sounds at bases, bilateral crackles. laboratory and microbiology Laboratory Tests 02/13/25 19:57 02/12/25 04:36 Test 02/12/25 04:36 Range/Units Serum Glucose 101 74-106 mg/dL Microbiology Date/Time Source Procedure Growth Status 02/12/25 11:20 Pleural Fluid Gram Stain - Final Resulted 02/12/25 11:20 Pleural Fluid Body Fluid Culture - Preliminary Resulted 02/11/25 02:26 Blood Blood Culture - Preliminary NO GROWTH AFTER 72 HOURS OF INCUBATION. Resulted Problem List/Assessment/Plan Problem List/Assessment/Plan ASSESSMENT 1. Multiple Hepatic Masses concerning for primary hepatocellular carcinoma vs. metastatic liver disease. 2. Iznttkyj-lj-Dukmh Ascites likely malignant; less likely portal hypertension given normal hepatic architecture. 3. GI Bleeding/Anemia history of melena, Hgb drop; rule out malignancy-related bleeding, varices, or ulcer. 4. Protein-Calorie Malnutrition cachexia, low albumin. 5. Status Post Paracentesis and Liver Biopsy procedures well tolerated, awaiting results. Plan GI Specific (System-Mata) Hepatic / GI * Await liver biopsy pathology and paracentesis cytology. * Continue tumor markers: AFP (pending), CA 19-9 (ordered), CEA (ordered). * Obtain viral hepatitis panel to rule out underlying chronic hepatitis. * Continue monitoring LFTs, CBC, coagulation daily. * Continue Ceftriaxone * Pain control with Dilaudid PRN; avoid hepatotoxic medications. Ascites Management * Albumin infusion if >5L removed during paracentesis (2.2L removed today; albumin optional but may be considered given low serum albumin). * Monitor for reaccumulation; consider repeat paracentesis if symptomatic. Nutrition * Nutrition consult for high-protein supplementation to address cachexia and low albumin. WE WILL CONTINUE TO MONITOR THIS PATIENT Case discussed in detail with the attending physician, including the clinical presentation, diagnostic workup, and comprehensive management plan. The patient was present for the discussion and demonstrated understanding of his condition and the proposed plan. Plan discussed with: Patient My Orders My Orders Orders - INDERJIT INTERIANO Procedure Category Date Status Time * Radiologist Consult CONS 02/14/25 Transmitted 11:34 * Radiologist Consult CONS 02/14/25 Transmitted 11:34 Body Fluids, Diff. LAB 02/14/25 In Process Cell Count 11:34 Us Guidance For US 02/14/25 Resulted Needle Placeme 11:50 Paracentesis US 02/14/25 Resulted 11:50 Dietary Evaluation Review Comments: 1) Ensure enlsive 240ml BID if PO intake <50% 2) Continue liberalizing diet Expected Outcomes/Goals: To meet >75% estimated needs Fu 3-5 days INDERJIT INTERIANO RESIDENT Feb 14, 2025 15:59
--- NOTE | 2025-02-14 16:17 | DVH ---
NUCLEAR MEDICINE WHOLE BODY BONE SCAN REASON FOR EXAM: RO METS. Multiple hepatic masses. COMPARISON: CT abdomen/ pelvis 02/11/2025 RADIOPHARMACEUTICAL: Dose: 20.5 mCi [id number] AUTHORIZED USER: Dr. Colton Squires M.D. TECHNIQUE: Single-phase nuclear medicine bone scan was performed. Standard delayed anterior and pos terior whole body images were acquired. FINDINGS: There is expected radiotracer activity in the genitourinary system. There expected radiotra cer activity in the bone marrow spaces. There is decreased radiotracer activity posteriorly in the lo wer lumbar spine secondary to laminectomies. There is photopenia at the upper outer left chest second rachel to a cardiac pacer. No suspicious focus of radiotracer activity is identified. IMPRESSION: No scintigraphic evidence of bony metastatic disease.
[2025-02-14] MEDS: HYDROcodone-ACET 10/325MG TAB PO PRN (22:03)
[2025-02-15 04:30] VITALS: BP 93/49; PULSE 86; RESP 18; TEMP 96.9; O2SAT 90
--- NOTE | 2025-02-15 06:12 | DVHPN2 ---
Progress Note - Dictate Date Seen: Feb 15, 2025 Has the PT tested + for MRSA If YES, has PT been informed?: No Medical Necessity Reason Pt with a Central, PICC or Fol: Yes The following are medically ne: Hillman Catheter Reason for hillman catheter: Strict I&O vital signs Vital Sign Date Time Temp Pulse Resp B/P (MAP) Pulse Ox O2 Delivery O2 Flow Rate FiO2 02/15/25 04:30 96.9 86 18 93/49 (64) 90 96.9 02/14/25 20:00 Room Air* 0 21 Total Intake and Output 02/14/25 02/14/25 02/15/25 15:00 23:00 07:00 Intake Total 520 ml 300 ml Output Total 250 ml 601 ml Balance 270 ml -301 ml medications Current Medications Medications Dose Ordered Sig/Hayley Route Start Time Stop Time Status Last Admin Dose Admin Atorvastatin Calcium 10 mg HS PO 02/11/25 22:00 02/14/25 21:58 10 MG Carvedilol 3.125 mg Q12HR PO 02/11/25 10:00 02/14/25 09:35 3.125 MG Clonidine HCl 0.1 mg Q4HP PRN PO 02/11/25 06:00 Ceftriaxone Sodium 50 ml @ 100 mls/hr DAILY@0530 IV 02/12/25 05:30 02/15/25 06:05 100 MLS/HR Sodium Chloride 10 ml Q8HR IV 02/11/25 06:00 02/15/25 06:05 10 ML Ondansetron HCl 4 mg Q4HP PRN IV 02/11/25 06:00 Docusate Sodium 100 mg BIDPRN PRN PO 02/11/25 06:00 Acetaminophen 650 mg Q6HP PRN PO 02/11/25 06:00 Nitroglycerin 0.4 mg Q5MINP PRN SL 02/11/25 06:00 Morphine Sulfate 2 mg Q30M PRN IV 02/11/25 06:00 Furosemide 20 mg DAILY IV 02/11/25 10:00 02/12/25 10:00 20 MG Acetaminophen/ Hydrocodone Bitart 1 tab Q4HP PRN PO 02/11/25 19:15 02/15/25 03:50 1 TAB Hydromorphone HCl 2 mg Q4HP PRN PO 02/11/25 19:15 02/14/25 14:28 2 MG Sacubitril/ Valsartan 1 tab BID PO 02/14/25 10:00 02/14/25 21:58 1 TAB laboratory and microbiology Laboratory Tests 02/13/25 19:57 02/12/25 04:36 Test 02/12/25 04:36 Range/Units Serum Glucose 101 74-106 mg/dL Assessment/Plan Patient is a 75-year-old gentleman who presented to the hospital on February 12, 2025 with few weeks of worsening generalized weakness/abdominal pain/dark stool and also shortness of breaths. The patient does have history of ischemic cardiomyopathy and HFimpEF. Has had BiV-ICD implanted. Cardiology was involved for cardiac aspects of care. The patient denies chest pains. He is known to our practice from outside and before. He does have baseline history of noncompliance to medication and follow up. It is of note that for long time he was refusing colonoscopy/ICD. Later, the patient agreed with ICD and [facility] BiV-ICD was implanted. His baseline ejection fraction increased from 25% to around 50%. He is known to have chronic respiratory failure secondary to advanced COPD and lung fibrosis. Last visit to the office and interrogation of the [facility] BiV-ICD was in October 11, 2024. Since arrival to the hospital, he is found to have possible metastatic disease. As outpatient, the patient is on Entresto/Jardiance/Toprol-XL/Crestor and aspirin Cachectic patient. Lying flat in bed. No JVD. Mucosa is pale. Mucosa is dry. No gross goiter. Not using accessory muscles of breathing. Scattered rhonchi in the lungs is heard. Cardiac: Regular, systolic murmur 3/6 in the apex S2 heard. Abdomen is flat. Some hot tender. Bowel sound is positive. Extremities revealed 2+ edema bilaterally. Dorsalis pedis is 1+ bilateral Past medical history includes advanced COPD, lung fibrosis, chronic respiratory failure on home oxygen, history of bronchiectasis, previous systolic heart failure, HFimpEF, ischemic cardiomyopathy, coronary artery disease, status post BiV-ICD ([facility]) implantation, carotid artery plaques, peripheral artery disease, baseline history of left bundle branch block, hyperlipidemia, hypertension, peripheral artery disease, history of cephalic vein thrombosis, kidney stones, hold history of tonsillectomy and chronic pain syndrome. Smokes cigarettes and abuses marijuana. Does have history of noncompliance. Previously refused colonoscopy and ICD. Later, agreed with ICD and had [facility] BiV-ICD implanted (which resulted in improvement of LVEF). Echocardiogram of December 24, 2023 (performed in the office) revealed ejection fraction of 20-25%, bjuu-qm-ymuujmuw aortic insufficiency, mild mitral regurgitation/tricuspid regurgitation/pulmonary insufficiency and right ventricular systolic pressure of less than 35 mm Hg. Echocardiogram of September 27, 2024 (performed in the office) revealed ejection fraction of 50-55%, pacemaker wire in the right-sided chambers, gbug-wy-[id number] aortic insufficiency, mild MR/TR/PI and right ventricular systolic pressure of less than 35 mm Hg. Left heart catheterization of January 15, 2024 revealed ischemic cardiomyopathy, proximal LAD with 40% lesions, mid to distal LAD became small caliber vessel with 80% diffuse disease. Proximal left circumflex revealed chronic dissection with reinstitution of the vessel. There was patent stenting RCA. There was systolic compression of right posterolateral branch. Ejection fraction was 35% Hemoglobin: 10.4 - 9.7 - 9.8 - 10.5 - 9.4 Potassium: 3.7 - 4.0 Creatinine: 0.86 - 0.78 Lactic acid: 2.2 - 1.9 AST/ALT: 65/12 - 52/11 Troponin (high sensitive): 6 - 4 - 6 BNP: 395.65 Chest x-ray revealed: IMPRESSION: 1. Small left pleural effusion. 2. Chronic appearing bilateral interstitial pulmonary markings. Repeat chest x-ray revealed: IMPRESSION: Similar lung aeration bilaterally. No pneumothorax is seen. Abdomen and pelvic CT scan reported: IMPRESSION: 1. New small bilateral pleural effusions, abtip-sbfwgzm-yaxl-left, with adjacent atelectasis. Otherwise stable appearing nodular multifocal bibasilar pulmonary infiltrate. 2. Multiple stable appearing hepatic masses concerning for primary and/or metastatic disease. 3. Interval increase in now moderate to large abdominopelvic ascites. 4. Diverticulosis coli without CT evidence of acute diverticulitis. Venous duplex of lower extremities reported: 1. Nonocclusive thrombus in the right and left common femoral veins consistent with deep venous thrombosis. Abdominal ultrasound reported: IMPRESSION: 1. Echogenic liver with large ill- defined structures largest measures 7 cm. 2. Ascites 3. Thickened gallbladder wall 4. Negative sonographic Winn's sign 5. Right kidney measures 8.9 cm no hydronephrosis Bone scan revealed: IMPRESSION: No scintigraphic evidence of bony metastatic disease. EKG revealed atrial sensing, ventricular pacing Tele reveals sinus rhythm with a occasions of PVC and couplets/triplets. Echocardiogram reported: Technically good study. Sinus rhythm. Aortic root enlargement. Concentric LVH. Valves are normal. EF of 55% with normal RV function. Moderate tricuspid insufficiency. Mild aortic insufficiency. Moderate mitral insufficiency. Mild pulmonic insufficiency. Pacing lead noted in RV. Large pleural effusion. No intracardiac masses thrombi or vegetations [facility] / [facility] BiV-ICD interrogation revealed: Battery: Longevity: 3.7 - 4.2 years; Remaining Capacity to AMARI: 81%; DDD: 60/130; Pulse Amplitude: A2.0/RV1.5/L3.25 V; Lead Impedance: A340/RV360/LV400/HV37 Ohms; A pace: 1.4% / B pace: 99%; No treated Episodes; Few (8) self limiting episodes of SVT / NSVT; Normal functioning BiV-ICD Patient is a 75-year-old gentleman who presented with generalized weakness, abdominal pain, abdominal distention, dark stool and shortness of breaths. He is found to have multiple lesions in liver and lung. Presentation is questioning metastatic disease. Looks cachectic. Has had thoracentesis and abdominal paracentesis by supervisor [facility] since admission. It is of note that the patient's cardiac history includes heart failure with improved systolic function. He has past history also includes noncompliance with medication and follow ups. He is found to have anemia also. He is also found to have DVT of bilateral lower extremities which itself could have happened secondary to the presence of metastatic disease. Presentation is not consider cardiac at this point. Does have baseline history of heart failure but clinically it is compensated. Acute coronary syndrome is not consider it. Recognizing dark stools, GI bleeding could be considered also. s/p sono guided liver biopsy by radiology Pleural effusion Ascites Cachexia Multiple hepatic mass Anemia Acute on chronic respiratory failure Diverticulosis Anasarca Protein calorie malnutrition DVT Ischemic cardiomyopathy Heart failure with improved systolic function HFimpEF Coronary artery disease Baseline left bundle-branch block Status post BiV-ICD implantation ([facility]) Bronchiectasis Lung fibrosis Advanced COPD on home oxygen Marijuana abuse Cigarette smoker Noncompliance to medication follow up s/p ultrasound guided liver biopsy (radiology) Cardiac suggestion for management: Manage on telemetry Follow up electrolytes and kidney function tests and correct abnormalities. Potassium above 4 and magnesium above 2 Consider TFT Full anticoagulation for DVT is suggested Restarted on Entresto GI follow up Follow up on Biopsy results as per primary team. Guideline directed medical therapy for systolic heart failure Pain management as per primary team Further evaluation and management depends on the above and clinical course A total of 55 minutes was spent reviewing the patient record, examining the patient, making a diagnostic and therapeutic plan, discussing this plan with medical personnel, following up on diagnostic studies and following the patient for clinical stability excluding any and all procedures. At least 50% of this time was spent in direct, jjpq-eh-vzcm contact. Thank you for allowing me to participate in this patient's care. Further recommendations will depend on patient's clinical course. Please do not hesitate to contact me if you have any questions or concerns. This medical document was created using electronic medical record system with [employer] computerized dictation system. Although this document has been carefully reviewed, there may still be some phonetic and typographical errors. These areas are purely typographical due to the imperfection of the software programs, and do not reflect any compromise in the patient's medical care. Dietary Evaluation Review Comments: 1) Ensure enlsive 240ml BID if PO intake <50% 2) Continue liberalizing diet Expected Outcomes/Goals: To meet >75% estimated needs Fu 3-5 days Plan discussed with: Patient, Other (nurse) SHANIA HERNANDEZ MD Feb 15, 2025 06:12
--- NOTE | 2025-02-15 06:40 | DVHNC2 ---
Procedure - [facility] / [facility] BiV-ICD interrogation revealed: Battery: Longevity: 3.7 - 4.2 years Remaining Capacity to AMARI: 81% DDD: 60/130 Pulse Amplitude: A2.0/RV1.5/L3.25 V Lead Impedance: A340/RV360/LV400/HV37 Ohms A pace: 1.4% / B pace: 99% No treated Episodes Few (8) self limiting episodes of SVT / NSVT Normal functioning BiV-ICD SHANIA HERNANDEZ MD Feb 15, 2025 06:40
[2025-02-15 08:00] VITALS: PULSE 81; PULSE 97; RESP 16; O2SAT 92
[2025-02-15 11:43] LABS: Hemoglobin 10.6 g/dL (13.5-17.5); Mean Corpuscular Hemoglobin 24.7 pg (28.0-32.0); Nucleated Red Blood Cells % 0.1 %
[2025-02-15 11:47] LABS: Hematocrit 34.0 % (41.0-53.0); Mean Corpuscular Volume 79.2 fL (80.0-100.0)
--- NOTE | 2025-02-15 11:51 | DVHPN2 ---
Progress Note Date Seen: Feb 15, 2025 Has the PT tested + for MRSA If YES, has PT been informed?: No Medical Necessity Reason Pt with a Central, PICC or Fol: Yes The following are medically ne: Hillman Catheter Reason for hillman catheter: Strict I&O Subjective Patient reports: No new complaints Review of Systems: HEENT:Normal, CVS:Normal, RESPIRATORY:Normal, GI:Normal, :Normal, MSK:Normal, NEURO:Normal Objective vital signs Vital Sign Date Time Temp Pulse Resp B/P (MAP) Pulse Ox O2 Delivery O2 Flow Rate FiO2 02/15/25 10:00 91/61 02/15/25 10:00 97 02/15/25 08:00 16 92 Nasal Cannula* 2 28 02/15/25 04:30 96.9 96.9 Total Intake and Output 02/14/25 02/14/25 02/15/25 15:00 23:00 07:00 Intake Total 520 ml 300 ml Output Total 250 ml 601 ml Balance 270 ml -301 ml medications Current Medications Medications Dose Ordered Sig/Hayley Route Start Time Stop Time Status Last Admin Dose Admin Atorvastatin Calcium 10 mg HS PO 02/11/25 22:00 02/14/25 21:58 10 MG Carvedilol 3.125 mg Q12HR PO 02/11/25 10:00 02/14/25 09:35 3.125 MG Clonidine HCl 0.1 mg Q4HP PRN PO 02/11/25 06:00 Ceftriaxone Sodium 50 ml @ 100 mls/hr DAILY@0530 IV 02/12/25 05:30 02/15/25 06:05 100 MLS/HR Sodium Chloride 10 ml Q8HR IV 02/11/25 06:00 02/15/25 06:05 10 ML Ondansetron HCl 4 mg Q4HP PRN IV 02/11/25 06:00 Docusate Sodium 100 mg BIDPRN PRN PO 02/11/25 06:00 Acetaminophen 650 mg Q6HP PRN PO 02/11/25 06:00 Nitroglycerin 0.4 mg Q5MINP PRN SL 02/11/25 06:00 Morphine Sulfate 2 mg Q30M PRN IV 02/11/25 06:00 Furosemide 20 mg DAILY IV 02/11/25 10:00 02/12/25 10:00 20 MG Acetaminophen/ Hydrocodone Bitart 1 tab Q4HP PRN PO 02/11/25 19:15 02/15/25 03:50 1 TAB Hydromorphone HCl 2 mg Q4HP PRN PO 02/11/25 19:15 02/14/25 14:28 2 MG Sacubitril/ Valsartan 1 tab BID PO 02/14/25 10:00 02/14/25 21:58 1 TAB Examination: GENERAL:Normal, HEENT:Normal, NECK:Normal, LUNGS:Normal, CVS:No rmal, ABDOMEN:Normal, MSK:Normal, SKIN:Normal, NEURO:Normal, :Normal laboratory and microbiology Test 02/15/25 11:27 Range/Units Serum Glucose Pending Microbiology Date/Time Source Procedure Growth Status 02/12/25 11:20 Pleural Fluid Gram Stain - Final Resulted 02/12/25 11:20 Pleural Fluid Body Fluid Culture - Preliminary Resulted 02/11/25 02:26 Blood Blood Culture - Preliminary NO GROWTH AFTER 72 HOURS OF INCUBATION. Resulted Problem List/Assessment/Plan Problem List/Assessment/Plan #1 acute resp failure: on oxygen #2 abd pain/liver mass: liver biopsy, bone scan #3 bilateral dvt: hold anticoag- anemia/thrombocytopenia #4 s/p paracentesis/thoracentesis #5 mod protein malnutrition #6 acute on chronic diastolic heart failure: lasix iv #7 s/p aicd #8 copd #9 cad #10 anemia refusing to stay, explained risks including . wants to go AMA advance care planning- full code-time spent 19mins Plan discussed with: Patient My Orders My Orders Orders - MEJIA CALHOUN MD Procedure Category Date Status Time Communication Order ORDERS 02/15/25 Transmitted 10:58 Dietary Evaluation Review Comments: 1) Ensure enlsive 240ml BID if PO intake <50% 2) Continue liberalizing diet Expected Outcomes/Goals: To meet >75% estimated needs Fu 3-5 days Date of Service: Feb 15, 2025 Billing Provider: MEJIA CALHOUN MD Common Visit Codes: [id number] INP/OBS CARE(HIGH) MEJIA CALHOUN MD Feb 15, 2025 11:51
[2025-02-15 11:52] LABS: Chloride 102 mmol/L (98-107); Potassium 4.4 mmol/L (3.5-5.1); Sodium 138 mmol/L (136-145)
[2025-02-15 11:53] LABS: Anion Gap 5 (5-15)
[2025-02-15 11:56] LABS: Calcium 8.5 mg/dL (8.7-10.4); Carbon Dioxide 31 mmol/L (20-31)
[2025-02-15 11:58] LABS: BUN/Creatinine Ratio 33.3 (10.0-20.0); Glucose 100 mg/dL (74-106)
[2025-02-15] MEDS: ALBUMIN 25% 50 ML IV ONE (12:00)
[2025-02-15 12:02] LABS: Blood Urea Nitrogen 23 mg/dL (9-23)
[2025-02-15 12:07] LABS: Glucose, Body Fluid 120.0 mg/dL (.)
[2025-02-15 13:33] LABS: Hepatitis A Total Antibody Negative (Negative); Hepatitis B Surface Antigen Negative (Negative)
[2025-02-15 13:37] LABS: Hepatitis C Antibody Reactive (Negative)
--- NOTE | 2025-02-15 16:05 | DVHPN2 ---
Progress Note Date Seen: Feb 15, 2025 Resident Creating Document: INDERJIT INTERIANO RESIDENT Has the PT tested + for MRSA If YES, has PT been informed?: No Medical Necessity Reason Pt with a Central, PICC or Fol: Yes The following are medically ne: Hillman Catheter Reason for hillman catheter: Strict I&O Subjective Review of Systems 02/15/25 75-year-old male with a complex history including advanced COPD, ischemic cardiomyopathy with AICD, chronic respiratory failure, bilateral DVT (anticoagulation held due to anemia and thrombocytopenia), coronary artery disease, and hepatitis C infection. He has multiple hepatic masses and ascites concerning for malignancy. The patient underwent ultrasound-guided liver biopsy and paracentesis with removal of 2200 mL serous fluid. Pathology and cytology are pending. Pleural fluid analysis was unremarkable; culture pending. Peritoneal fluid showed elevated RBC count (3965) with otherwise normal parameters. Bone scan revealed no evidence of metastatic disease. Today, the patient remains tachycardic with BP 91/61 and urine output 0.62 mL/kg/hr via Hillman. He reports persistent abdominal pain but refuses further hospitalization and is requesting to leave AMA, despite being counseled extensively regarding the risks of leaving with an undiagnosed malignancy and ongoing acute illness. He is currently receiving Ceftriaxone IV, Clonidine 0.1 mg, Ondansetron, Docusate, Acetaminophen, Nitroglycerin, Morphine, Hydrocodone, Hydromorphone, and Sacubitril/Valsartan. Feeds: NPO except medications, previously on enteral feeds as tolerated. Brief Summary of Todays Progress * Liver Biopsy: Completed; pathology pending. * Paracentesis: 2.2 L serous fluid removed; cytology pending. * Bone Scan: No evidence of osseous metastasis. * CT Abdomen/Pelvis: Multiple hepatic masses (largest 8 cm), thickened gallbladder wall, increased ascites. * Ultrasound: Echogenic liver with large ill-defined masses; ascites; gallbladder wall thickening likely from ascites. * Tumor Markers: CEA normal (10.05), LDH elevated (316), AFP pending, CA 19-9 pending. * Labs: Hgb improved to 10.6 (from 9.4), AST 52 (elevated), ALT 11 (normal), ALP normal, albumin 3.2 (low). * HCV antibody: Reactive. Review of Systems * Constitutional: Cachexia, fatigue, no fever. * GI: Abdominal pain, bloating, last bowel movement on 02/10. * : Hillman in place, oliguria. * CV: Bilateral leg edema, hypotension. * Pulmonary: Dyspnea on exertion, oxygen dependent. * Neuro: Alert, oriented 3. Objective vital signs Vital Sign Date Time Temp Pulse Resp B/P (MAP) Pulse Ox O2 Delivery O2 Flow Rate FiO2 02/15/25 10:00 91/61 02/15/25 10:00 97 02/15/25 08:00 16 92 Nasal Cannula* 2 28 02/15/25 04:30 96.9 96.9 Total Intake and Output 02/14/25 02/14/25 02/15/25 14:59 22:59 06:59 Intake Total 520 ml 300 ml Output Total 250 ml 601 ml Balance 270 ml -301 ml medications Current Medications Medications Dose Ordered Sig/Hayley Route Start Time Stop Time Status Last Admin Dose Admin Atorvastatin Calcium 10 mg HS PO 02/11/25 22:00 02/14/25 21:58 10 MG Clonidine HCl 0.1 mg Q4HP PRN PO 02/11/25 06:00 Ceftriaxone Sodium 50 ml @ 100 mls/hr DAILY@0530 IV 02/12/25 05:30 02/15/25 06:05 100 MLS/HR Sodium Chloride 10 ml Q8HR IV 02/11/25 06:00 02/15/25 06:05 10 ML Ondansetron HCl 4 mg Q4HP PRN IV 02/11/25 06:00 Docusate Sodium 100 mg BIDPRN PRN PO 02/11/25 06:00 Acetaminophen 650 mg Q6HP PRN PO 02/11/25 06:00 Nitroglycerin 0.4 mg Q5MINP PRN SL 02/11/25 06:00 Morphine Sulfate 2 mg Q30M PRN IV 02/11/25 06:00 Acetaminophen/ Hydrocodone Bitart 1 tab Q4HP PRN PO 02/11/25 19:15 02/15/25 03:50 1 TAB Hydromorphone HCl 0.5 mg Q4HP PRN PO 02/15/25 12:00 Sacubitril/ Valsartan 0.5 tab BID PO 02/15/25 22:00 Examination * General: Cachectic, chronically ill, lying in bed. * Abdomen: Distended, tender, positive fluid wave, no guarding or rebound. * Skin: No jaundice. * CV: Regular rhythm, systolic murmur. laboratory and microbiology Laboratory Tests 02/15/25 11:27 Test 02/15/25 11:27 Range/Units Serum Glucose 100 74-106 mg/dL Microbiology Date/Time Source Procedure Growth Status 02/14/25 12:42 Ascities Fluid Gram Stain - Final Resulted 02/14/25 12:42 Ascities Fluid Body Fluid Culture - Preliminary Resulted 02/11/25 02:26 Blood Blood Culture - Preliminary NO GROWTH AFTER 72 HOURS OF INCUBATION. Resulted Problem List/Assessment/Plan Problem List/Assessment/Plan Assessment 1. Multiple Hepatic Masses suspicious for hepatocellular carcinoma (given HCV positivity, elevated AST, cachexia) vs. metastatic disease (requires histopathology). 2. Hmbxypif-nf-Hpgyq Ascites likely malignant; cytology pending. 3. Hepatitis C Virus Infection newly confirmed reactive; contributes to risk of HCC. 4. Abdominal Pain multifactorial, likely due to malignancy and ascites. 5. Malnutrition protein-calorie malnutrition with cachexia, low albumin. 6. Status Post Paracentesis and Liver Biopsy stable post-procedure. 7. Anemia improved but still low; multifactorial. 8. Acute GI risk with AMA patient counseled on risks of leaving. Plan GI Focused (System-Mata) Hepatic / GI * Await liver biopsy pathology for definitive diagnosis. * Follow-up paracentesis cytology and fluid cultures (currently no growth). * Continue monitoring tumor markers (AFP, CA 19-9 pending). * Monitor LFTs, CBC, coagulation profile daily. * Continue Ceftriaxone for SBP prophylaxis until cultures finalized. * Provide pain control with Dilaudid/Morphine PRN, avoid hepatotoxic medications. * If patient leaves AMA, provide clear written instructions for urgent follow-up and contact information. Nutrition * Maintain NPO status until cleared; reintroduce enteral feeds when clinically stable. * Recommend nutrition consult for high-protein diet and supplementation post- discharge. Patient Wants to leave AMA Case discussed in detail with the attending physician, including the clinical presentation, diagnostic workup, and comprehensive management plan. The patient was present for the discussion and demonstrated understanding of his condition and the proposed plan. Plan discussed with: Patient Dietary Evaluation Review Comments: 1) Ensure enlsive 240ml BID if PO intake <50% 2) Continue liberalizing diet Expected Outcomes/Goals: To meet >75% estimated needs Fu 3-5 days INDERJIT INTERIANO RESIDENT Feb 15, 2025 16:05
[2025-02-15] MEDS ORDERED: SACUBITRIL-VALSARTAN 24mg/26mg TAB PO SCH (22:00)
== END 2025-02-15 16:00 | disposition left against medical advice (07) | DRG 435 ==
LOC: ER 01:49 → OVERFLOW 05:50 → TELE-WESTW 09:32
PROVIDERS: ADMIT Internal Medicine; ATTEND Internal Medicine
PROC: 0W9G3ZX Drainage of Peritoneal Cavity, Percutaneous Approach, Diagnostic (ICD-10-PCS; principal; 2025-02-11)
PROC: 0W9B3ZZ Drainage of Left Pleural Cavity, Percutaneous Approach (ICD-10-PCS; 2025-02-12)
PROC: 05HA33Z Insertion of Infusion Device into Left Brachial Vein, Percutaneous Approach (ICD-10-PCS; 2025-02-13)
PROC: B54NZZA Ultrasonography of Left Upper Extremity Veins, Guidance (ICD-10-PCS; 2025-02-13)
PROC: 0W9G3ZX Drainage of Peritoneal Cavity, Percutaneous Approach, Diagnostic (ICD-10-PCS; 2025-02-14)
PROC: 0FB23ZX Excision of Left Lobe Liver, Percutaneous Approach, Diagnostic (ICD-10-PCS; 2025-02-14)
PROC: 4B02XTZ Measurement of Cardiac Defibrillator, External Approach (ICD-10-PCS; 2025-02-15)
DX: C22.0 Liver cell carcinoma (principal); I50.33 Acute on chronic diastolic (congestive) heart failure; J69.0 Pneumonitis due to inhalation of food and vomit; J96.21 Acute and chronic respiratory failure with hypoxia; J98.11 Atelectasis; R64 Cachexia; R18.0 Malignant ascites; C78.02 Secondary malignant neoplasm of left lung; E44.0 Moderate protein-calorie malnutrition; J98.4 Other disorders of lung; K76.9 Liver disease, unspecified; K57.30 Diverticulosis of large intestine without perforation or abscess without bleeding; D64.9 Anemia, unspecified; Z53.29 Procedure and treatment not carried out because of patient's decision for other reasons; G89.4 Chronic pain syndrome; I11.0 Hypertensive heart disease with heart failure; D69.6 Thrombocytopenia, unspecified; I07.1 Rheumatic tricuspid insufficiency; I25.10 Atherosclerotic heart disease of native coronary artery without angina pectoris; I25.5 Ischemic cardiomyopathy; I44.7 Left bundle-branch block, unspecified; F17.210 Nicotine dependence, cigarettes, uncomplicated; B19.20 Unspecified viral hepatitis C without hepatic coma; I34.0 Nonrheumatic mitral (valve) insufficiency; J44.9 Chronic obstructive pulmonary disease, unspecified; Z82.49 Family history of ischemic heart disease and other diseases of the circulatory system; Z95.810 Presence of automatic (implantable) cardiac defibrillator; Z79.82 Long term (current) use of aspirin; Z79.84 Long term (current) use of oral hypoglycemic drugs; Z79.899 Other long term (current) drug therapy; Z99.81 Dependence on supplemental oxygen; Z91.148 Patient's other noncompliance with medication regimen for other reason; Z87.442 Personal history of urinary calculi; I25.2 Old myocardial infarction
CPT/HCPCS: 32554; 36415; 47000; 49082; 49083; 71045; 74177; 76705; 76942; 78306; 80048; 80053; 81001; 82105; 82378; 83605; 83615; 83690; 83735; 83880; 83986; 84443; 84484; 85025; 85610; 85730; 86704; 86706; 86708; 86803; 86850; 86900; 86901; 87040; 87205; 87340; 89051; 92610; 93306; 93970; 96365; 96375; 99291; G0378; J2003; P9047